=== PATIENT | female | born 1970 | race African-American/Black ===

== ENCOUNTER 2022-07-27 13:18 | Observation (INO) | payer MEDICAID, SELFPAY ==
[2022-07-27] VITALS (37 sets, daily range): BP systolic 96–139; BP diastolic 68–90; PULSE 79–131; RESP 13–43; TEMP 36.5–36.7; O2SAT 73–100; BMI 39.5; BMI 35.6
--- NOTE | 2022-07-27 13:42 | ED_ITS ---
HPI - SOB/Dyspnea General Chief Complaint: Shortness of Breath/Dyspnea Stated Complaint: SHOTRNESS OF BREATH Time Seen by Provider: 07/27/22 13:42 Source: patient Mode of arrival: ambulance Limitations comment: Patient is a poor historian History of Present Illness HPI Narrative: Patient presents to emergency department complaining of dyspnea. Patient states she has a history of lung disease, She just moved here from [place] 9 days ago. She was hospitalized [place] about one month ago after she had cardiac arrest was intubated states she had a heart catheterization and she was shocked. She states during the catheterization they did not put any stents. The patient recovered and moved to [place]. She states when she flew into [place] she was supposed to be wearing 6 L of oxygen but they did not allow her to bring the oxygen with her on the airplane so she has been without her oxygen for 9 days. She has inhalers that she has been using them a lot and she states that they're no longer helping. Has a cough which is productive of white sputum. She denies any chest pain. She does not know what medication she takes. She was supposed to follow-up with a heart doctor and family doctor and [place] but she came here because her is ill. She states she has been unable to obtain any oxygen to wear at home. She denies any fever, or chills. She denies any nausea, vomiting, diarrhea, constipation, or abdominal pain. She denies any trauma. She denies any flank pain, hematuria, dysuria. Medication list was obtained from a discharge paperwork that the patient had with her. Related Data Home Medications Medication Instructions Recorded Confirmed albuterol sulfate 1.25 mg/3 mL 1.25 mg inhalation Q8H PRN 07/27/22 07/27/22 solution for nebulization shortness of breath or wheezing amiodarone 200 mg tablet 200 mg PO Q12H 07/27/22 07/27/22 budesonide-formoterol HFA 160 2 inh inhalation Q12H PRN 07/27/22 07/27/22 mcg-4.5 mcg/actuation aerosol shortness of breath inhaler (Symbicort) furosemide 20 mg tablet 20 mg PO QDAY 07/27/22 07/27/22 gabapentin 600 mg tablet 600 mg PO Q12H 07/27/22 07/27/22 levalbuterol HCl 1.25 mg/3 mL 1.25 mg inhalation Q6H PRN 07/27/22 07/27/22 solution for nebulization shortness of breath or wheezing oxycodone-acetaminophen 10 mg-325 1 tab PO Q8H 07/27/22 07/27/22 mg tablet pantoprazole 40 mg tablet,delayed 40 mg PO QDAY 07/27/22 07/27/22 release potassium chloride 10 mEq 10 meq PO QDAY 07/27/22 07/27/22 tablet,extended release sennosides 8.6 mg tablet (senna) 8.6 mg PO BID 07/27/22 07/27/22 Allergies Allergy/AdvReac Type Severity Reaction Status Date / Time Penicillins Allergy Intermediate Verified 07/27/22 13:24 Review of Systems ROS Status of ROS 10 or more systems reviewed and unremarkable except as noted in history and below Exam Narrative Exam Narrative: Nurses notes and vital signs reviewed and patient is not hypoxic. General: Nontoxic, Well-appearing and in no apparent distress. Skin: Warm, dry, no pallor noted. No Rash Head: Normocephalic, atraumatic. Neck: Supple, non-tender. Eye: Pupils are equal, round and EOMI. No scleral icterus. Ears, Nose, Mouth, and Throat: TM clear, no posterior oropharynx erythema or nasal mucosal hypertrophy, uvula is mid-line Oral mucosa is moist, edentous Cardiovascular: Regular tachycardia without murmur, gallop or rub. Respiratory: No accessory muscle use or respiratory distress. Lungs diminished breath sounds bilaterally Chest Wall: no tenderness Back: No midline thoracic or lumbar vertebral tenderness. No CVA tenderness Musculoskeletal: normal ROM, no calf or popliteal tenderness, no lower extremity edema/swelling GI: Abdomen is soft, non-distended. Normal bowel sounds. No masses appreciated. No tenderness to palpation. No rebound, guarding, or rigidity noted. Neurological: A&O x4. No cranial nerve dysfunction observed. No truncal a taxia. Moves all extremities. Sensation intact. Psychiatric: Cooperative and interactive. Normal mood and affect. Constitutional Vital Signs - 24 hr 07/27/22 13:24 07/27/22 13:42 07/27/22 13:47 Temperature 97.7 F Pulse Rate Respiratory Rate 22 Blood Pressure Blood Pressure [Left Arm] 117/90 H Pulse Oximetry 85 L 94 L 99 Oxygen Delivery Method Room Air Nasal Cannula Room Air Oxygen Delivery Flow Rate 1 07/27/22 13:30 07/27/22 13:31 07/27/22 13:32 Temperature Pulse Rate 125 H 127 H 94 H Respiratory Rate 21 34 H 27 H Blood Pressure 130/83 H Blood Pressure [Left Arm] Pulse Oximetry 95 94 L Oxygen Delivery Method Oxygen Delivery Flow Rate 07/27/22 13:47 07/27/22 14:01 07/27/22 14:10 Temperature Pulse Rate 127 H 131 H 90 Respiratory Rate 26 H 23 43 H Blood Pressure 103/79 Blood Pressure [Left Arm] Pulse Oximetry Oxygen Delivery Method Oxygen Delivery Flow Rate 07/27/22 14:20 07/27/22 14:30 07/27/22 14:40 Temperature Pulse Rate 90 88 84 Respiratory Rate 28 H 21 18 Blood Pressure Blood Pressure [Left Arm] Pulse Oximetry 100 Oxygen Delivery Method Oxygen Delivery Flow Rate 07/27/22 14:50 07/27/22 15:00 07/27/22 15:10 Temperature Pulse Rate 87 93 H 87 Respiratory Rate 14 17 33 H Blood Pressure Blood Pressure [Left Arm] Pulse Oximetry 100 98 Oxygen Delivery Method Oxygen Delivery Flow Rate 07/27/22 15:28 07/27/22 15:30 07/27/22 15:32 Temperature Pulse Rate 92 H 88 88 Respiratory Rate 27 H 26 H 21 Blood Pressure Blood Pressure [Left Arm] Pulse Oximetry 73 L Oxygen Delivery Method Oxygen Delivery Flow Rate 07/27/22 15:33 07/27/22 16:32 07/27/22 17:21 Temperature Pulse Rate 85 Respiratory Rate 22 Blood Pressure 117/88 H Blood Pressure [Left Arm] Pulse Oximetry 100 96 Oxygen Delivery Method Nasal Cannula Nasal Cannula Oxygen Delivery Flow Rate 3 3 07/27/22 15:33 07/27/22 15:46 07/27/22 16:17 Temperature Pulse Rate 84 90 89 Respiratory Rate 26 H 43 H 13 Blood Pressure 117/88 H 129/71 H 101/80 H Blood Pressure [Left Arm] Pulse Oximetry 81 L Oxygen Delivery Method Oxygen Delivery Flow Rate 07/27/22 16:32 07/27/22 16:42 07/27/22 16:50 Temperature Pulse Rate 87 102 H Respiratory Rate 22 16 Blood Pressure Blood Pressure [Left Arm] Pulse Oximetry 100 95 99 Oxygen Delivery Method Oxygen Delivery Flow Rate 07/27/22 17:00 07/27/22 17:10 07/27/22 17:16 Temperature Pulse Rate 86 87 Respiratory Rate Blood Pressure Blood Pressure [Left Arm] Pulse Oximetry 97 96 Oxygen Delivery Method Oxygen Delivery Flow Rate 07/27/22 17:17 07/27/22 17:17 Temperature Pulse Rate 90 Respiratory Rate Blood Pressure 96/68 96/68 Blood Pressure [Left Arm] Pulse Oximetry 96 Oxygen Delivery Method Oxygen Delivery Flow Rate Course Course Hospital Course: Records from previous admission where ordered. She was given Solu-Medrol 125 mg IV. EKG was done which showed a left bundle branch block with left ventricular hypertrophy and ST elevation in lead 3 and aVF. I discussed his EKG and it was reviewed by Dr. HOWARD who advised this is not a STEMI and to continue with the patient's workup here at [place]. ABG was ordered. The patient's oxygen saturation has been 99-100 percent on 1 L nasal cannula. Patient was given albuterol and DuoNeb treatments which helped her. Oxygen saturation is 100 percent on 1 L nasal cannula. The patient ABG is showed that the patient is hypoxic. She was placed on 3 L nasal cannula. The patient has been noncompliant with her medications. The patient troponin remained stable on repeat. The patient was discussed with Dr. Palma for admission. This note was created with the assistance of a speech recognition program. Although the intention is to generate documents that actually reflects the content of the visit, no guarantees can be provided that every mistake has been identified and corrected by editing. Vital Signs Vital signs: Vital Signs Temperature 97.7 F 07/27/22 13:24 Respiratory Rate 22 07/27/22 13:24 Blood Pressure 117/90 H 07/27/22 13:24 Pulse Oximetry 85 L 07/27/22 13:24 Oxygen Delivery Method Room Air 07/27/22 13:24 Temperature 97.7 F 07/27/22 13:24 Pulse Rate 90 07/27/22 17:17 Respiratory Rate 16 07/27/22 16:50 Blood Pressure 96/68 07/27/22 17:17 Pulse Oximetry 96 07/27/22 17:21 Oxygen Delivery Method Nasal Cannula 07/27/22 17:21 Oxygen Delivery Flow Rate 3 07/27/22 17:21 MDM - SOB/Dyspnea Differential Diagnosis Differential diagnosis: Likely acute exacerbation of chronic obstructive airways disease, congestive heart failure, community acquired pneumonia, asthma with exacerbation and pulmonary embolism Medical Records Attestation: I reviewed the patient's medical records. Lab Data Attestation: I reviewed the patient's lab results. Labs: Lab Results 07/27/22 07/27/22 07/27/22 Range/Units 14:10 14:40 16:04 WBC 8.2 (4.0-11.0) 10^3/uL RBC 4.24 (4.20-5.40) 10^6/uL Hgb 9.9 L (12.0-16.0) g/dL Hct 33.3 L (36.0-48.0) % MCV 78.5 L (81.0-99.0) fL MCH 23.3 L (26.7-34.0) pg MCHC 29.7 L (29.9-35.2) g/dL RDW 17.9 H (11.0-15.0) % Plt Count 454 H (150-450) 10^3/uL MPV 9.6 (9.5-13.5) fL Neut % (Auto) 69.0 (43.0-75.0) % Lymph % (Auto) 24.2 (20.5-60.0) % Cassia % (Auto) 5.6 (1.7-12.0) % Eos % (Auto) 0.9 (0.9-7.0) % Baso % (Auto) 0.1 L (0.2-2.0) % Neut # (Auto) 5.6 (1.4-6.5) 10^3/uL Lymph # (Auto) 2.0 (1.2-3.8) 10^3/uL Cassia # (Auto) 0.5 (0.3-0.8) 10^3/uL Eos # (Auto) 0.1 (0.0-0.7) 10^3/uL Baso # (Auto) 0.0 (0.0-0.1) 10^3/uL Abs Immat Gran (auto) 0.02 (0.00-0.03) 10^3/uL Imm/Tot Granulo (auto) 0.2 (0.0-0.5) % PT 11.5 (9.0-11.6) sec INR 1.09 APTT 25.6 (22.3-36.2) sec D-Dimer 1.57 H* (<=0.59) mg/L FEU Puncture Site Rr ABG pH 7.516 H* (7.350-7.450) ABG pCO2 32.5 L (35.0-45.0) mmHg ABG pO2 48.2 L (80.0-100.0) mmHg ABG HCO3 26.3 H (22.0-26.0) mmol/L ABG O2 Saturation 85.3 % ABG Base Excess 3.3 H (-2.0-2.0) mmol/L Mickey Test Positive (POSITIVE) Sodium 141 (136-145) mmol/L Potassium 2.9 L* (3.5-5.1) mmol/L Chloride 102 (98-107) mmol/L Carbon Dioxide 29.9 (21.0-32.0) mmol/L Anion Gap 12.0 BUN 15.0 (7.0-18.0) mg/dL Creatinine 0.94 (0.55-1.02) mg/dL Est GFR ( Amer) >60 (>=60) Est GFR (Non-Af Amer) >60 (>=60) BUN/Creatinine Ratio 16.0 Glucose 90 (74-106) mg/dL Calcium 8.5 (8.5-10.1) mg/dL Total Bilirubin 0.5 (0.2-1.0) mg/dL AST 25 (15-37) U/L ALT 29 (14-59) U/L Alkaline Phosphatase 85 (46-116) U/L Troponin I High Sens 83.5 H* 82.8 H* (4.0-51.3) pg/mL NT-Pro-B Natriuret Pep 693.0 (<=900.0) pg/mL Total Protein 7.1 (6.4-8.2) g/dL Albumin 2.6 L (3.4-5.0) g/dL Globulin 4.5 g/dL Albumin/Globulin Ratio 0.6 Adenovirus (PCR) (NOT DETECTE) C. pneumoniae DNA (PCR) (NOT DETECTE) Coronavirus Type OC43 (NOT DETECTE) Coronavirus Type HKU1 (NOT DETECTE) Coronavirus Type 229E (NOT DETECTE) Coronavirus Type NL63 (NOT DETECTE) Human Metapneumovir PCR (NOT DETECTE) M. pneumoniae (PCR) (NOT DETECTE) Parainfluenza PCR (NOT DETECTE) Parainfluenza 2 (PCR) (NOT DETECTE) Parainfluenza 3 (PCR) (NOT DETECTE) Parainfluenza 4 (PCR) (NOT DETECTE) RSV (RT-PCR) (NOT DETECTE) Entero/Rhino (PCR) (NOT DETECTE) SARS-CoV-2 (PCR) (NOT DETECTE) Bordetella pertussis (PCR) (NOT DETECTE) B parapertussis DNA PCR (NOT DETECTE) Influenza Type A (PCR) Influenza Type B (PCR) (NOT DETECTE) 07/27/22 Range/Units 16:20 WBC (4.0-11.0) 10^3/uL RBC (4.20-5.40) 10^6/uL Hgb (12.0-16.0) g/dL Hct (36.0-48.0) % MCV (81.0-99.0) fL MCH (26.7-34.0) pg MCHC (29.9-35.2) g/dL RDW (11.0-15.0) % Plt Count (150-450) 10^3/uL MPV (9.5-13.5) fL Neut % (Auto) (43.0-75.0) % Lymph % (Auto) (20.5-60.0) % Cassia % (Auto) (1.7-12.0) % Eos % (Auto) (0.9-7.0) % Baso % (Auto) (0.2-2.0) % Neut # (Auto) (1.4-6.5) 10^3/uL Lymph # (Auto) (1.2-3.8) 10^3/uL Cassia # (Auto) (0.3-0.8) 10^3/uL Eos # (Auto) (0.0-0.7) 10^3/uL Baso # (Auto) (0.0-0.1) 10^3/uL Abs Immat Gran (auto) (0.00-0.03) 10^3/uL Imm/Tot Granulo (auto) (0.0-0.5) % PT (9.0-11.6) sec INR APTT (22.3-36.2) sec D-Dimer (<=0.59) mg/L FEU Puncture Site ABG pH (7.350-7.450) ABG pCO2 (35.0-45.0) mmHg ABG pO2 (80.0-100.0) mmHg ABG HCO3 (22.0-26.0) mmol/L ABG O2 Saturation % ABG Base Excess (-2.0-2.0) mmol/L Mickey Test (POSITIVE) Sodium (136-145) mmol/L Potassium (3.5-5.1) mmol/L Chloride (98-107) mmol/L Carbon Dioxide (21.0-32.0) mmol/L Anion Gap BUN (7.0-18.0) mg/dL Creatinine (0.55-1.02) mg/dL Est GFR ( Amer) (>=60) Est GFR (Non-Af Amer) (>=60) BUN/Creatinine Ratio Glucose (74-106) mg/dL Calcium (8.5-10.1) mg/dL Total Bilirubin (0.2-1.0) mg/dL AST (15-37) U/L ALT (14-59) U/L Alkaline Phosphatase (46-116) U/L Troponin I High Sens (4.0-51.3) pg/mL NT-Pro-B Natriuret Pep (<=900.0) pg/mL Total Protein (6.4-8.2) g/dL Albumin (3.4-5.0) g/dL Globulin g/dL Albumin/Globulin Ratio Adenovirus (PCR) Not detected (NOT DETECTE) C. pneumoniae DNA (PCR) Not detected (NOT DETECTE) Coronavirus Type OC43 Not detected (NOT DETECTE) Coronavirus Type HKU1 Not detected (NOT DETECTE) Coronavirus Type 229E Not detected (NOT DETECTE) Coronavirus Type NL63 Not detected (NOT DETECTE) Human Metapneumovir PCR Not detected (NOT DETECTE) M. pneumoniae (PCR) Not detected (NOT DETECTE) Parainfluenza PCR Not detected (NOT DETECTE) Parainfluenza 2 (PCR) Not detected (NOT DETECTE) Parainfluenza 3 (PCR) Not detected (NOT DETECTE) Parainfluenza 4 (PCR) Not detected (NOT DETECTE) RSV (RT-PCR) Not detected (NOT DETECTE) Entero/Rhino (PCR) Not detected (NOT DETECTE) SARS-CoV-2 (PCR) Not detected (NOT DETECTE) Bordetella pertussis (PCR) Not detected (NOT DETECTE) B parapertussis DNA PCR Not detected (NOT DETECTE) Influenza Type A (PCR) Not detected Influenza Type B (PCR) Not detected (NOT DETECTE) Critical Care Time Critical Care Time Attestation: Critical Care Time: 35 minutes, critical care time is separate from any procedures that are performed. The following was considered in the determination of critical care but not limited to the level medical decision-making, intensive cardiac and/or respiratory monitor, frequent vital sign monitoring, evaluation of laboratory studies, evaluation of a radiographic studies, oxygen monitoring and constant monitoring. Discharge Plan Discharge Chief Complaint: Shortness of Breath/Dyspnea Clinical Impression: Interstitial emphysema of lung, Pulmonary fibrosis, Hypoxemia, Tachycardia, Noncompliance with medication regimen Patient Disposition: Admitted as Observation Time of Disposition Decision: 17:18 Condition: Good
--- NOTE | 2022-07-27 13:52 | ECG_ITS ---
The [facility] Test Date: 2022-07-27 Pat Name: AL NEWMAN Department: Room: - Gender: Female [employer]ist: : 1970 Requested By: Order Number: [id number] Reading MD: JUAN KENNEDY Measurements Intervals [place] Rate: 125 P: -[id number] ME: -[id number] QRS: -59 QRSD: 128 T: 122 QT: 388 QTc: 462 Interpretive Statements 1921 Undetermined regular rhythm (tachycardia) 3332 Anterolateral myocardial infarction, probably recent 61822 Inferior myocardial infarction with posterior extension, age undetermined 5234 Left ventricular hypertrophy with repolarization abnormality 9150 abnormal ECG No previous ECG available for comparison Electronically Signed On 07-28-2022 6:56:02 EDT by JUAN KENNEDY
--- NOTE | 2022-07-27 13:52 | XR_ITS ---
The [place] [id number] Patient Name: AL NEWMAN MRN: [id number] date: 1970 Sex: F Assigned Patient Location: ER Current Patient Location: ER Accession/Order Number: [id number] Exam Date: 07/27/2022 03:00 Report Date: 07/27/2022 15:24 At the request of: SHAGUFTA MCGEE Procedure: XR chest 1V EXAMINATION: XR chest 1V HISTORY: dyspnea COMPARISON: No relevant comparison available. FINDINGS: LUNGS: Underexpanded lungs with mild haziness and stranding within lung bases partially obscuring the heart and diaphragm margins. VASCULATURE: No increased pulmonary vasculature. PLEURA: No pneumothorax, effusion, or pleural thickening. CARDIAC: No cardiomegaly or cardiac silhouette abnormality. MEDIASTINUM: No visible mass or adenopathy. BONES: No fracture or visible bone lesion. OTHER: Negative. IMPRESSION: 1. Low lung volume examination with mild-moderate bibasilar infiltrates versus atelectasis. Electronically authenticated by: ARJUN SWEENEY Date: 07/27/2022 15:24
[2022-07-27] MEDS: METHYLPREDNISOLONE SOD SUCC PF 125 MG/2 ML VIAL IVP ×2 (14:13→22:11)
[2022-07-27 14:27] LABS: Basophils Percent Auto 0.1 % (0.2-2.0); Eosinophils Absolute Auto 0.1 10^3/uL (0.0-0.7); Eosinophils Percent Auto 0.9 % (0.9-7.0); Hematocrit 33.3 % (36.0-48.0); Hemoglobin 9.9 g/dL (12.0-16.0); Immature Granulocytes Abs Auto 0.02 10^3/uL (0.00-0.03); Immature Granulocytes Pct Auto 0.2 % (0.0-0.5); Lymphocytes Percent Auto 24.2 % (20.5-60.0); Mean Corpuscular HGB Conc 29.7 g/dL (29.9-35.2); Mean Corpuscular Hemoglobin 23.3 pg (26.7-34.0); Mean Corpuscular Volume 78.5 fL (81.0-99.0); Mean Platelet Volume 9.6 fL (9.5-13.5); Monocytes Absolute Auto 0.5 10^3/uL (0.3-0.8); Monocytes Percent Auto 5.6 % (1.7-12.0); Neutrophils Absolute Auto 5.6 10^3/uL (1.4-6.5); Platelet Count 454 10^3/uL (150-450); Red Blood Count 4.24 10^6/uL (4.20-5.40); Red Cell Distribution Width 17.9 % (11.0-15.0); White Blood Count 8.2 10^3/uL (4.0-11.0)
[2022-07-27] MEDS: IPRATROPIUM/ALBUTEROL SULFATE 3 ML AMPUL.NEB IH (14:34)
--- NOTE | 2022-07-27 14:38 | PC.NURSE ---
PT ARRIVE TO ER RM 4 FOR PSYCHIATRIC EVALUATION AND DRUG USE. PT WAS FOUND BY [facility] DISPLAYING BIZARRE BEHAVIOR AND TALKING TO PEOPLE WHO ARE NOT THERE. PT WAS SEEN BY THIS FACILITY 2 DAYS AGO WITH SIMILAR BEHAVIOR. DURING THAT ER VISIT PT WAS POSITIVE FOR METHAMPHETAMINE AND WAS POSITIVE FOR . DUE TO POSITIVE THIS FACILITY ALONG WITH CRISIS HOTLINE AT [facility] WAS UNABLE TO FIND PLACEMENT INPATIENT AND WAS DISCHARGED HOME. DURING THIS CURRENT VISIT PT IS UNCOOPERATIVE WITH STAFF AND LAW ENFORCEMENT. THIS WAS EXPLAINED TO ER PHYSICIAN AND AGREES THAT PT IS MEDICALLY CLEAR TO BE PLACE IN CUSTODY OF [facility]
[2022-07-27 14:52] LABS: INR 1.09; Partial Thromboplastin Time 25.6 sec (22.3-36.2); Prothrombin Time 11.5 sec (9.0-11.6)
[2022-07-27 14:55] LABS: D Dimer 1.57 mg/L FEU (<=0.59)
[2022-07-27 15:01] LABS: Alanine Aminotransferase 29 U/L (14-59); Albumin Globulin Ratio 0.6; Albumin Level 2.6 g/dL (3.4-5.0); Alkaline Phosphatase 85 U/L (46-116); Aspartate Amino Transferase 25 U/L (15-37); Bilirubin Total 0.5 mg/dL (0.2-1.0); Calcium 8.5 mg/dL (8.5-10.1); Carbon Dioxide 29.9 mmol/L (21.0-32.0); Chloride 102 mmol/L (98-107); Estimated GFR (African America >60 (>=60); Estimated GFR (Non-African Ame >60 (>=60); Globulin 4.5 g/dL; Glucose 90 mg/dL (74-106); Sodium 141 mmol/L (136-145); Total Protein 7.1 g/dL (6.4-8.2)
[2022-07-27 15:05] LABS: Potassium 2.9 mmol/L (3.5-5.1)
[2022-07-27 15:06] LABS: Troponin I High Sensitivity 83.5 pg/mL (4.0-51.3)
--- NOTE | 2022-07-27 15:06 | CT_ITS ---
The [address] [address] Patient Name: AL NEWMAN MRN: [id number] date: 1970 Sex: F Assigned Patient Location: ER Current Patient Location: ER Accession/Order Number: [id number] Exam Date: 07/27/2022 15:15 Report Date: 07/27/2022 16:18 At the request of: SHAGUFTA MCGEE Procedure: CT angio chest CT angio chest, 07/27/2022 3:15 PM EDT INDICATION: dyspnea COMPARISON: Chest x-ray, this same date. Chest CT 12/10/2010 TECHNIQUE: Iodinated contrast was administered intravenously by rapid injection, with further multislice axial sections acquired in the pulmonary arterial phase from the thoracic inlet to the upper abdomen. Coronal maximal intensity projection images were created for comprehensive analysis and diagnosis of the regional circulation. Dose reduction techniques were achieved by using automated exposure control and/or adjustment of mA and/or kV according to patient size and/or use of iterative reconstruction technique. FINDINGS: LUNGS/PLEURA: There are peripherally distributed groundglass densities with interstitial septal thickening with a basilar predominance. VASCULATURE: No visible pulmonary arterial thrombus or attenuation. The main pulmonary artery measures 3.2 cm in diameter. MELECIO: No mass or adenopathy. MEDIASTINUM: No mass or adenopathy. CARDIAC: Cardiomegaly AORTA: Normal. No aneurysm or dissection. CHEST WALL: No mass or axillary adenopathy LIMITED ABD: There is a small hiatal hernia. BONES: Normal. No bony lesion or fracture. OTHER: Negative. IMPRESSION: Peripherally distributed groundglass densities with interstitial septal thickening, appearing chronic. Clinical history given for the chest CT of 12 years ago alluded to the possibility of interstitial lung disease. Query whether such a diagnosis has been established? If not, consider further evaluation with nonemergent high-resolution lung CT. Borderline prominent main pulmonary artery suggesting the possibility of pulmonary arterial hypertension. No evidence for pulmonary embolism. Electronically authenticated by: Oseas MOTA Date: 07/27/2022 16:18
[2022-07-27 15:09] LABS: ABG PCO2 32.5 mmHg (35.0-45.0)
[2022-07-27 15:10] LABS: Allen Test POSITIVE (POSITIVE); Base Excess ABG 3.3 mmol/L (-2.0-2.0); HCO3 ABG 26.3 mmol/L (22.0-26.0); O2 Mode ROOM AIR; Oxygen Saturation ABG 85.3 %; PO2 ABG 48.2 mmHg (80.0-100.0); Puncture Site RR
[2022-07-27 15:12] LABS: pH ABG 7.516 (7.350-7.450)
[2022-07-27 16:30] LABS: Adenovirus NOT DETECTED (NOT DETECTE); Bordetella parapertussis NOT DETECTED (NOT DETECTE); Coronavirus 229E NOT DETECTED (NOT DETECTE); Coronavirus HKU1 NOT DETECTED (NOT DETECTE); Coronavirus NL63 NOT DETECTED (NOT DETECTE); Coronavirus OC43 NOT DETECTED (NOT DETECTE); Human Metapneumovirus NOT DETECTED (NOT DETECTE); Human Rhinovirus/Enterovirus NOT DETECTED (NOT DETECTE); Influenza A NOT DETECTED; Influenza B NOT DETECTED (NOT DETECTE); Mycoplasma pneumoniae NOT DETECTED (NOT DETECTE); Parainfluenza Virus 1 NOT DETECTED (NOT DETECTE); Parainfluenza Virus 2 NOT DETECTED (NOT DETECTE); Parainfluenza Virus 3 NOT DETECTED (NOT DETECTE); Parainfluenza Virus 4 NOT DETECTED (NOT DETECTE); Respiratory Syncytial Virus NOT DETECTED (NOT DETECTE); SARS-CoV-2 NOT DETECTED (NOT DETECTE)
[2022-07-27 16:34] LABS: Troponin I High Sensitivity 82.8 pg/mL (4.0-51.3)
[2022-07-27 19:09] LABS: Lactate/Lactic Acid 2.7 mmol/L (0.4-2.0)
[2022-07-27 19:24] LABS: Cannabinoid Screen Urine POSITIVE (NEGATIVE); Cocaine Screen Urine POSITIVE (NEGATIVE); Phencyclidine Screen Urine NEGATIVE (NEGATIVE)
[2022-07-27 19:25] LABS: Amphetamine Screen Urine NEGATIVE (NEGATIVE); Barbiturates Screen Urine NEGATIVE (NEGATIVE); Benzodiazepines Screen Urine NEGATIVE (NEGATIVE); Buprenorphine Screen Urine NEGATIVE (NEGATIVE); Methadone Screen Urine NEGATIVE (NEGATIVE); Methamphetamines Screen Urine NEGATIVE (NEGATIVE); Opiate Screen Urine NEGATIVE (NEGATIVE); Oxycodone Screen Urine NEGATIVE (NEGATIVE); Tricyclic Antidepressant Urine POSITIVE (NEGATIVE)
[2022-07-27] MEDS: AMIODARONE HCL 200 MG TABLET PO (22:04)
[2022-07-27] MEDS: GABAPENTIN 300 MG CAPSULE 600 MG PO (22:07)
[2022-07-27] MEDS: OXYCODONE HCL 5 MG TABLET PO (22:07)
[2022-07-27] MEDS: SENNOSIDES 8.6 MG TABLET PO (22:12)
[2022-07-27] MEDS: CEFTRIAXONE 1,000 MG in 0.9 % SODIUM CHLORIDE 50 ML 100 MG IV (22:39)
[2022-07-27] MEDS: BUDESONIDE 0.5 MG/2 ML AMPULE NEB IH (22:49)
[2022-07-27] MEDS: ALBUTEROL SULFATE 2.5 MG/3 ML VIAL NEB IH (22:52)
[2022-07-28] VITALS (19 sets, daily range): BP systolic 109–136; BP diastolic 62–84; PULSE 72–107; RESP 18–123; TEMP 36.2–36.6; O2SAT 93–100; BMI 35.5
[2022-07-28] MEDS: METHYLPREDNISOLONE SOD SUCC PF 125 MG/2 ML VIAL IVP ×2 (03:56→08:14)
[2022-07-28] MEDS: ALBUTEROL SULFATE 2.5 MG/3 ML VIAL NEB IH ×2 (04:12→16:31)
--- NOTE | 2022-07-28 04:21 | RESP.RT ---
decreased to 4L
[2022-07-28 04:45] LABS: Basophils Percent Auto 0.2 % (0.2-2.0); Hematocrit 34.6 % (36.0-48.0); Hemoglobin 10.1 g/dL (12.0-16.0); Immature Granulocytes Abs Auto 0.04 10^3/uL (0.00-0.03); Immature Granulocytes Pct Auto 0.7 % (0.0-0.5); Lymphocytes Percent Auto 16.6 % (20.5-60.0); Mean Corpuscular HGB Conc 29.2 g/dL (29.9-35.2); Mean Corpuscular Hemoglobin 23.1 pg (26.7-34.0); Mean Platelet Volume 9.7 fL (9.5-13.5); Monocytes Percent Auto 0.7 % (1.7-12.0); Neutrophils Absolute Auto 4.8 10^3/uL (1.4-6.5); Neutrophils Percent Auto 81.8 % (43.0-75.0); Platelet Count 467 10^3/uL (150-450); Red Blood Count 4.38 10^6/uL (4.20-5.40); Red Cell Distribution Width 17.7 % (11.0-15.0); White Blood Count 5.9 10^3/uL (4.0-11.0)
[2022-07-28 05:02] LABS: Alanine Aminotransferase 51 U/L (14-59); Albumin Globulin Ratio 0.6; Albumin Level 2.8 g/dL (3.4-5.0); Alkaline Phosphatase 99 U/L (46-116); Anion Gap 16.3; Aspartate Amino Transferase 60 U/L (15-37); BUN Creatinine Ratio 20.9; Bilirubin Total 0.3 mg/dL (0.2-1.0); Carbon Dioxide 26.1 mmol/L (21.0-32.0); Chloride 102 mmol/L (98-107); Estimated GFR (African America >60 (>=60); Estimated GFR (Non-African Ame >60 (>=60); Globulin 4.9 g/dL; Glucose 174 mg/dL (74-106); Potassium 3.4 mmol/L (3.5-5.1); Sodium 141 mmol/L (136-145); Total Protein 7.7 g/dL (6.4-8.2)
[2022-07-28] MEDS: OXYCODONE HCL 5 MG TABLET PO ×2 (05:45→19:20)
[2022-07-28 05:51] LABS: Troponin I High Sensitivity 60.8 pg/mL (4.0-51.3)
[2022-07-28] MEDS: GABAPENTIN 300 MG CAPSULE 600 MG PO ×2 (06:02→19:22)
--- NOTE | 2022-07-28 06:02 | PC.NURSE ---
crirtical lab value troponin of 60.8, trending down from yesterdays level of 82.8
[2022-07-28] MEDS: AMIODARONE HCL 200 MG TABLET PO ×2 (06:03→19:22)
[2022-07-28 07:49] LABS: Glucometer 213 mg/dL (74-106)
[2022-07-28] MEDS: L. ACIDOPHILUS/L.BULGARICUS 1 PACKET GRAN.PACK PO ×3 (08:14→16:35)
[2022-07-28] MEDS: OMEPRAZOLE 40 MG CAPSULE.DR PO (08:14)
[2022-07-28] MEDS: SENNOSIDES 8.6 MG TABLET PO ×2 (08:14→21:36)
[2022-07-28] MEDS: FUROSEMIDE 40 MG TABLET PO (08:14)
[2022-07-28] MEDS: POTASSIUM CHLORIDE 10 MEQ ER TABLET PO (08:17)
[2022-07-28] MEDS: INSULIN ASPART 300 UNIT/3 ML PEN SUBQ ×4 (08:31→21:37)
--- NOTE | 2022-07-28 09:53 | P.HP_ITS ---
H&P: HPI History of Present Illness Chief complaint: SHOTRNESS OF BREATH Narrative: Patient with a known history of pulmonary fibrosis. She was on 4 to 5 L of oxygen at home in [place]. She moved up.. When she flew up she was unable to carry her oxygen with her. So she is been 8 or 9 days now without her sup plemental oxygen. Had some altered mental status and significant dyspnea presented to the emergency room with acute hypoxic respiratory failure. Placed on supplemental oxygen with improvement in her oxygen saturations. Patient also with cough with sputum production. Admitted for work-up and treatment of same [facility] Medical History (Updated 07/27/22 @ 18:45 by Sandy Marsh) Meds Home Medications and Allergies Home Medications Medication Instructions Recorded Confirmed Type albuterol sulfate 1.25 mg/3 mL 1.25 mg inhalation Q8H PRN 07/27/22 07/27/22 History solution for nebulization shortness of breath or wheezing amiodarone 200 mg tablet 200 mg PO Q12H 07/27/22 07/27/22 History budesonide-formoterol HFA 160 2 inh inhalation Q12H PRN 07/27/22 07/27/22 History mcg-4.5 mcg/actuation aerosol shortness of breath inhaler (Symbicort) furosemide 20 mg tablet 20 mg PO QDAY 07/27/22 07/27/22 History gabapentin 600 mg tablet 600 mg PO Q12H 07/27/22 07/27/22 History levalbuterol HCl 1.25 mg/3 mL 1.25 mg inhalation Q6H PRN 07/27/22 07/27/22 History solution for nebulization shortness of breath or wheezing oxycodone-acetaminophen 10 mg-325 1 tab PO Q8H 07/27/22 07/27/22 History mg tablet pantoprazole 40 mg tablet,delayed 40 mg PO QDAY 07/27/22 07/27/22 History release potassium chloride 10 mEq 10 meq PO QDAY 07/27/22 07/27/22 History tablet,extended release sennosides 8.6 mg tablet (senna) 8.6 mg PO BID 07/27/22 07/27/22 History Allergies Allergy/AdvReac Type Severity Reaction Status Date / Time Penicillins Allergy Intermediate Verified 07/27/22 13:24 Exam Constitutional Vital Signs - 24 hr 07/27/22 13:24 07/27/22 13:42 07/27/22 13:47 Temperature 97.7 F Pulse Rate Respiratory Rate 22 Blood Pressure Blood Pressure [Left Arm] 117/90 H Blood Pressure [Right Arm] Pulse Oximetry 85 L 94 L 99 Oxygen Delivery Method Room Air Nasal Cannula Room Air Oxygen Delivery Flow Rate 1 07/27/22 13:30 07/27/22 13:31 07/27/22 13:32 Temperature Pulse Rate 125 H 127 H 94 H Respiratory Rate 21 34 H 27 H Blood Pressure 130/83 H Blood Pressure [Left Arm] Blood Pressure [Right Arm] Pulse Oximetry 95 94 L Oxygen Delivery Method Oxygen Delivery Flow Rate 07/27/22 13:47 07/27/22 14:01 07/27/22 14:10 Temperature Pulse Rate 127 H 131 H 90 Respiratory Rate 26 H 23 43 H Blood Pressure 103/79 Blood Pressure [Left Arm] Blood Pressure [Right Arm] Pulse Oximetry Oxygen Delivery Method Oxygen Delivery Flow Rate 07/27/22 14:20 07/27/22 14:30 07/27/22 14:40 Temperature Pulse Rate 90 88 84 Respiratory Rate 28 H 21 18 Blood Pressure Blood Pressure [Left Arm] Blood Pressure [Right Arm] Pulse Oximetry 100 Oxygen Delivery Method Oxygen Delivery Flow Rate 07/27/22 14:50 07/27/22 15:00 07/27/22 15:10 Temperature Pulse Rate 87 93 H 87 Respiratory Rate 14 17 33 H Blood Pressure Blood Pressure [Left Arm] Blood Pressure [Right Arm] Pulse Oximetry 100 98 Oxygen Delivery Method Oxygen Delivery Flow Rate 07/27/22 15:28 07/27/22 15:30 07/27/22 15:32 Temperature Pulse Rate 92 H 88 88 Respiratory Rate 27 H 26 H 21 Blood Pressure Blood Pressure [Left Arm] Blood Pressure [Right Arm] Pulse Oximetry 73 L Oxygen Delivery Method Oxygen Delivery Flow Rate 07/27/22 15:33 07/27/22 16:32 07/27/22 17:21 Temperature Pulse Rate 85 Respiratory Rate 22 Blood Pressure 117/88 H Blood Pressure [Left Arm] Blood Pressure [Right Arm] Pulse Oximetry 100 96 Oxygen Delivery Method Nasal Cannula Nasal Cannula Oxygen Delivery Flow Rate 3 3 07/27/22 15:33 07/27/22 15:46 07/27/22 16:17 Temperature Pulse Rate 84 90 89 Respiratory Rate 26 H 43 H 13 Blood Pressure 117/88 H 129/71 H 101/80 H Blood Pressure [Left Arm] Blood Pressure [Right Arm] Pulse Oximetry 81 L Oxygen Delivery Method Oxygen Delivery Flow Rate 07/27/22 16:32 07/27/22 16:42 07/27/22 16:50 Temperature Pulse Rate 87 102 H Respiratory Rate 22 16 Blood Pressure Blood Pressure [Left Arm] Blood Pressure [Right Arm] Pulse Oximetry 100 95 99 Oxygen Delivery Method Oxygen Delivery Flow Rate 07/27/22 17:00 07/27/22 17:10 07/27/22 17:16 Temperature Pulse Rate 86 87 Respiratory Rate Blood Pressure Blood Pressure [Left Arm] Blood Pressure [Right Arm] Pulse Oximetry 97 96 Oxygen Delivery Method Oxygen Delivery Flow Rate 07/27/22 17:17 07/27/22 17:17 07/27/22 18:56 Temperature Pulse Rate 90 103 H Respiratory Rate Blood Pressure 96/68 96/68 Blood Pressure [Left Arm] Blood Pressure [Right Arm] Pulse Oximetry 96 Oxygen Delivery Method Oxygen Delivery Flow Rate 07/27/22 18:55 07/27/22 18:55 07/27/22 20:00 Temperature 98.0 F Pulse Rate 82 Respiratory Rate 20 20 Blood Pressure Blood Pressure [Left Arm] 131/84 H Blood Pressure [Right Arm] Pulse Oximetry 95 Oxygen Delivery Method Nasal Cannula Nasal Cannula Oxygen Delivery Flow Rate 3 3 07/27/22 20:22 07/27/22 21:24 07/27/22 22:04 Temperature 98 F Pulse Rate 81 80 80 Respiratory Rate 18 Blood Pressure 139/87 H Blood Pressure [Left Arm] Blood Pressure [Right Arm] 139/87 H Pulse Oximetry 100 Oxygen Delivery Method Nasal Cannula Oxygen Delivery Flow Rate 5 07/27/22 22:27 07/27/22 22:52 07/28/22 06:00 Temperature 97.8 F Pulse Rate 82 79 82 Respiratory Rate 18 18 Blood Pressure Blood Pressure [Left Arm] 131/84 H Blood Pressure [Right Arm] 121/78 H Pulse Oximetry 99 96 Oxygen Delivery Method Nasal Cannula Nasal Cannula Oxygen Delivery Flow Rate 3 4 07/28/22 00:00 07/28/22 02:04 07/27/22 23:10 Temperature Pulse Rate 84 76 80 Respiratory Rate 18 Blood Pressure Blood Pressure [Left Arm] Blood Pressure [Right Arm] Pulse Oximetry 99 Oxygen Delivery Method Oxygen Delivery Flow Rate 07/28/22 04:11 07/28/22 04:29 07/28/22 05:44 Temperature 97.8 F Pulse Rate 75 76 82 Respiratory Rate 18 18 18 Blood Pressure Blood Pressure [Left Arm] Blood Pressure [Right Arm] 121/78 H Pulse Oximetry 100 100 96 Oxygen Delivery Method Nasal Cannula Nasal Cannula Oxygen Delivery Flow Rate 5 4 07/28/22 07:55 07/28/22 09:49 Temperature Pulse Rate 96 H 78 Respiratory Rate Blood Pressure Blood Pressure [Left Arm] Blood Pressure [Right Arm] Pulse Oximetry Oxygen Delivery Method Oxygen Delivery Flow Rate HENMT Common normals: moist oral mucous membranes Neck & C-Spine Common normals: full ROM and no lymphadenopathy Chest Common normals: inspection of chest normal Respiratory Common normals: normal respiratory effort and no retractions Effort & inspection: not able to speak in complete sentences (Some dyspnea with conversation) Cardio Common normals: regular rate and regular rhythm GI Common normals: Normal to inspection, nondistended, normoactive bowel sounds present Results Labs Labs: Short CBC 07/27/22 07/28/22 Range/Units 14:10 04:11 WBC 8.2 5.9 (4.0-11.0) 10^3/uL Hgb 9.9 L 10.1 L (12.0-16.0) g/dL Hct 33.3 L 34.6 L (36.0-48.0) % Plt Count 454 H 467 H (150-450) 10^3/uL BMP 07/27/22 07/28/22 14:10 04:11 Sodium 141 141 Potassium 2.9 L* 3.4 L Chloride 102 102 Carbon Dioxide 29.9 26.1 BUN 15.0 18.0 Creatinine 0.94 0.86 Glucose 90 174 H Calcium 8.5 9.0 Liver Function 07/27/22 07/28/22 Range/Units 14:10 04:11 Total Bilirubin 0.5 0.3 (0.2-1.0) mg/dL AST 25 60 H (15-37) U/L ALT 29 51 (14-59) U/L Alkaline Phosphatase 85 99 (46-116) U/L Albumin 2.6 L 2.8 L (3.4-5.0) g/dL ABG ABG results: 07/27/22 14:40 ABG pH 7.516 H* ABG pCO2 32.5 L ABG pO2 48.2 L ABG HCO3 26.3 H ABG O2 Saturation 85.3 ABG Base Excess 3.3 H Assessment and Plan Assessment and Plan (1) Cocaine use: (2) Oxygen dependent: (3) Pulmonary disease: Plan Respiratory distress and acute hypoxia secondary to acute exacerbation of COPD secondary to acute bronchitis and lack of supplemental home oxygen. Also history of pulmonary fibrosis likely. Not certain the diagnosis but it has been finalized. Still gathering history. Continue with current treatment plan. Consult to pulmonology for acute care and long-term management Hypokalemia-supplement Iron deficiency anemia-monitor daily Hyperglycemia-Add insulin sliding scale Significant coronary artery disease status postcardiac arrest-elevated BNP,Hold off on further fluids, check echocardiogram GERD-continue with current medications Morbid obesity-diet management Patient will need to be in the hospital for more than 2 midnights. Continue with current treatment for acute exacerbation as above will last more tha2 daysn
--- NOTE | 2022-07-28 09:59 | SWNOTE1 ---
Pt is of Vito Garza who is admitted at hospital. SW spoke with her yesterday in 's room. She was sitting in chair, no shortness of breath, talking with WALLACE. Pt moved back to care for her . WALLACE spoke with nurse outreach case manager and pt had 5 liters of oxygen back in [place]. She has gone 9 days without her oxygen because she could not take it on plane. She has her inhalers she has been using. Pt also used to have walker, bedside commode, hospital bed, and caregivers at her home in [place]. She had told [employer] she had some medical condition that she needs caregivers for when she has a flare up. She would also like a medicaid application. WALLACE to take her one. She provided the oxygen company number, WALLACE to call.
[2022-07-28] MEDS: BUDESONIDE 0.5 MG/2 ML AMPULE NEB IH ×2 (10:23→23:02)
--- NOTE | 2022-07-28 10:26 | CA_ITS ---
Patient: AL NEWMAN Exam Date: 07/28/2022 : 1970 Gender:F Ordering : DR Sreekanth Palma . Admission #: [id number] Family : MAYNOR BACHRACH Order #: [id number] CLICK HERE TO VIEW EXAM ECHOCARDIOGRAM REPORT PROCEDURE: CA ECHO DOPPLER COMPLETE INDICATIONS: CHF COMPARISON: None. DESCRIPTION: COMPLETE ECHOCARDIOGRAM Real-time transthoracic echocardiography with 2D, M-mode, spectral and color flow Doppler performed. QUALITY: Technical quality was good. LEFT VENTRICLE: Normal chamber size. Mild concentric left ventricular hypertrophy. Global left ventricular systolic function is normal. LV EF: Estimated left ventricular ejection fraction is 60% DIASTOLIC: Grade II diastolic dysfunction. ATRIAL SEPTUM: LEFT ATRIUM: Mild dilatation. RIGHT ATRIUM: Moderate dilatation. RIGHT VENTRICLE: Mildly dilated. Normal right ventricular systolic function. TRICUSPID VALVE: Normal mobility and thickness. No stenosis with mild to moderate regurgitation. Moderate to severe pulmonary hypertension. RVSP 58 mmHg MITRAL VALVE: Mildly thickened with mild concentric left ventricular hypertrophy with normal systolic function. Normal mobility. No evidence of mitral valve stenosis. There is no mitral annular calcification. Trivial mitral regurgitation. AORTIC VALVE: Normal trileaflet appearance. Normal leaflet mobility. No evidence of aortic valve stenosis. No aortic regurgitation. AORTIC ROOT: Normal diameter and appearance. PULMONIC VALVE: Normal thickness and mobility. No stenosis. Mild regurgitation. PERICARDIUM: No evidence of pericardial effusion. IVC: Normal size with partial collapse. PLEURA: CONCLUSION: 1. Mild concentric left ventricular hypertrophy with normal systolic function. LVEF is estimated at 60%. 2. Mildly dilated right ventricle with normal systolic function. 3. Mild to moderate biatrial dilatation. 4. Grade 2 diastolic dysfunction. 5. Mild to moderate tricuspid regurgitation. 6. Moderately elevated right-sided pressures. RVSP is 58 mmHg. Adult Echocardiography Procedure Report Left Ventricle LVEDD (3.7 - 5.6 cm): 3.40 cm LVESD (2.2 - 4.0 cm): 2.46 cm LVIVS thickness (0.6 - 1.2 cm): 1.10 cm LVPW thickness (0.5 - 1.0 cm): 1.42 cm e': 0.09 m/s E - e': 11.53 LVOT Max Gradient: 3.23 mm[Hg], 3.67 mm[Hg] LVOT Area (cm2): 0.93 m/s Peak Velocity (LVOT): 0.90 m/s, 0.96 m/s Mean Velocity (LVOT): 0.57 m/s LVOT Diameter 1.77 cm Left Ventricular Ejection Fraction: 60% Left Atrium LA Volume Index (2D A2C): 40.20 ml/m2 Left Atrium Systolic Dimension: 4.54 cm Mitral Valve MV E to A Ratio: 1.83 Mitral Valve A-Wave Peak Velocity: 0.58 m/s Mitral Valve E-Wave Peak Velocity: 1.07 m/s Right Ventricle RV Internal Diastolic Dimension: 3.49 cm Aorta AO Root Diam: 2.83 cm Ascending Ao Diam: 2.93 cm Aortic Valve AoV Area (Peak Max): 1.78 cm2, 1.72 cm2 AoV Area (VTI): 1.72 cm2, 1.51 cm2 Peak Velocity(Antegrade Flow): 1.29 m/s Peak Gradient(Antegrade Flow): 6.65 mm[Hg] Mean Velocity(Antegrade Flow): 0.86 m/s Mean Gradient(Antegrade Flow): 3.42 mm[Hg] Velocity Time Integral: 21.27 cm Tricuspid Valve Peak Velocity (Regurgitant Flow): 2.76 m/s, 2.41 m/s, 3.53 m/s Pulmonic Valve Mean Gradient: 1.68 mm[Hg] Mean Velocity: 0.62 m/s Peak Velocity: 0.81 m/s, 0.86 m/s Peak Gradient: 2.94 mm[Hg], 2.62 mm[Hg] Right Atrium Right Atrium Systolic Pressure: 73.51 ml, 73.51 ml Dictated by: Nelson Hager M.D. on 07/29/2022 at 11:38 Approved by: Nelson Hager M.D. on 07/29/2022 at 11:43
[2022-07-28] MEDS: ALBUTEROL SULFATE 2.5 MG/0.5 ML VIAL NEB IH (10:33)
[2022-07-28 11:02] LABS: Glucometer 217 mg/dL (74-106)
--- NOTE | 2022-07-28 11:40 | CM.NOTE ---
Rounds made with Dr. Palma. No plan for discharge today. Gwen relays that prior to moving to [place] she had oxygen @ 5L/NC([employer] [phone]-DME provider in [place]) but was unable to bring on the airplane. She has been without oxygen for ~9 days. Gwen states that prior to moving to [place] she had walker, HHN, BSC, Hospital bed and cane. She states that when she has a flare of her myositis she requires constant care. Requested help completing the [place] Medicaid application.
--- NOTE | 2022-07-28 12:15 | SWNOTE1 ---
WALLACE spoke with pt. Pt is on oxygen currently and she stated she has not had her oxygen for 9 days. Pt is living at home with her right now and caring for him, she moved back from [place]. She stated it is just him and her in the home. She stated her 2 sons and her daughter in law live close, one of them right beside her. Her daughter in law is working on getting paid to be her 's caregiver. She stated her and her are on good terms, it is just his family. She stated once she is secured she plans on finding her own apartment. SW and pt talked about her oxygen and SW is going to call the [employer] in [place] to see what she had ordered. SW also asked if her had a walker at home and if they were alright with HH coming in. Pt's does have a walker and she thinks HH is a good idea. Pt did ask if HH did any house cleaning. SW let her know what HH does and that it would PT/OT and usp in the home a few times of the week until pt meets his goals. SW also took medicaid application to pt, she is filling it out. SW to take pt HH list for her .
--- NOTE | 2022-07-28 14:34 | PC.NURSE ---
titrated to 3 lpm at this time
--- NOTE | 2022-07-28 14:40 | SWNOTE1 ---
WALLACE spoke with pt's oxygen company in [place] Pt was prescribed home oxygen back in April 2022, oxygen conserving device and portability. She was prescribed 2 liters for COPD. WALLACE updated nursing. WALLACE also sent over medicaid application to [facility].
--- NOTE | 2022-07-28 15:39 | P.PLCN_ITS ---
History of Present Illness History of Present Illness Requesting physician: Sreekanth Palma Reason for consult: hypoxemia and abnormal CXR/CT Chief complaint: SHOTRNESS OF BREATH Narrative: 52yo female presents with hypoxemia. She is originally from [place], moved to [place] some years ago. 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 I said that myositis means muscle inflammation, did she mean something else like myeloma? She continued to call whatever it is myositis and was treated with prednisone... She moved back to [place] after that. She has a history of some sort of interstitial lung disease. She said that the computational sciences professor she saw there said it was due to her chronic prednisone therapy. No biopsies were ever taken of it. She was actually started on Ofev BID, but is complaining of the very common GI adverse effects. She was started on O2 several months ago at 2L/min O2. ~1 month ago she had a cardiac arrest and was apparently shocked. Report states that she had a cardiac catheterization, but I do not see a copy of it. She states she does not know why she had the ME. She returned to [place] last week to permanently relocate. As airplanes do not allow patients to bring their own O2 tanks with them, she continued with the entire trip without any supplemental O2. I did explain to her for future reference that the airlines will provide their own O2 (for a fee) but they need to be contacted in advance; additionally, the patient would also need to make arrangements for O2 at the destination. She was visiting her who was admitted to [facility]. Staff noted that she was not breathing well and she was brought to the ER. SpO2 was 85% on RA. ABG showed a respiratory alkalosis and hypoxemia: pH 7.516, pCO2 32.5, pO2 48.2, SaO2 85% on RA. CTA was done which showed no pulmonary emboli, but there were peripheral GGO with intraseptal thickening appeared similar to a prior CT 11.5 years ago done on 12/10/2010. I reviewed her chart. I noted that she tested positive for marijuana and cocaine. The patient admitted to me that she has a drug addiction. She uses marijuana for pain and mixes in cocaine and smokes it. I counseled her that she should never smoke anything around O2 - she states she takes it off. Review of Systems ROS Status of ROS 10 or more systems reviewed and unremarkable except as noted in history and below Respiratory Reports: shortness of breath Gastrointestinal Reports: diarrhea (associated with Ofev) Musculoskeletal Reports: joint pain Endocrine Reports: fatigue [facility] Medical History (Updated 07/28/22 @ 15:59 by Lopez Storey DO) Meds Home Medications and Allergies Home Medications Medication Instructions Recorded Confirmed Type albuterol sulfate 1.25 mg/3 mL 1.25 mg inhalation Q8H PRN 07/27/22 07/27/22 History solution for nebulization shortness of breath or wheezing amiodarone 200 mg tablet 200 mg PO Q12H 07/27/22 07/27/22 History budesonide-formoterol HFA 160 2 inh inhalation Q12H PRN 07/27/22 07/27/22 Histo ry mcg-4.5 mcg/actuation aerosol shortness of breath inhaler (Symbicort) furosemide 20 mg tablet 20 mg PO QDAY 07/27/22 07/27/22 History gabapentin 600 mg tablet 600 mg PO Q12H 07/27/22 07/27/22 History levalbuterol HCl 1.25 mg/3 mL 1.25 mg inhalation Q6H PRN 07/27/22 07/27/22 History solution for nebulization shortness of breath or wheezing oxycodone-acetaminophen 10 mg-325 1 tab PO Q8H 07/27/22 07/27/22 History mg tablet pantoprazole 40 mg tablet,delayed 40 mg PO QDAY 07/27/22 07/27/22 History release potassium chloride 10 mEq 10 meq PO QDAY 07/27/22 07/27/22 History tablet,extended release sennosides 8.6 mg tablet (senna) 8.6 mg PO BID 07/27/22 07/27/22 History Allergies Allergy/AdvReac Type Severity Reaction Status Date / Time Penicillins Allergy Intermediate Verified 07/27/22 13:24 Exam Constitutional Vital Signs - 24 hr 07/27/22 16:32 07/27/22 17:21 07/27/22 15:46 Temperature Pulse Rate 90 Respiratory Rate 43 H Blood Pressure 129/71 H Blood Pressure [Left Arm] Blood Pressure [Right Arm] Pulse Oximetry 96 81 L Oxygen Delivery Method Nasal Cannula Nasal Cannula Oxygen Delivery Flow Rate 3 3 07/27/22 16:17 07/27/22 16:32 07/27/22 16:42 Temperature Pulse Rate 89 87 Respiratory Rate 13 22 Blood Pressure 101/80 H Blood Pressure [Left Arm] Blood Pressure [Right Arm] Pulse Oximetry 100 95 Oxygen Delivery Method Oxygen Delivery Flow Rate 07/27/22 16:50 07/27/22 17:00 07/27/22 17:10 Temperature Pulse Rate 102 H 86 Respiratory Rate 16 Blood Pressure Blood Pressure [Left Arm] Blood Pressure [Right Arm] Pulse Oximetry 99 97 Oxygen Delivery Method Oxygen Delivery Flow Rate 07/27/22 17:16 07/27/22 17:17 07/27/22 17:17 Temperature Pulse Rate 87 90 Respiratory Rate Blood Pressure 96/68 96/68 Blood Pressure [Left Arm] Blood Pressure [Right Arm] Pulse Oximetry 96 96 Oxygen Delivery Method Oxygen Delivery Flow Rate 07/27/22 18:56 07/27/22 18:55 07/27/22 18:55 Temperature 98.0 F Pulse Rate 103 H 82 Respiratory Rate 20 Blood Pressure Blood Pressure [Left Arm] 131/84 H Blood Pressure [Right Arm] Pulse Oximetry 95 Oxygen Delivery Method Nasal Cannula Nasal Cannula Oxygen Delivery Flow Rate 3 3 07/27/22 20:00 07/27/22 20:22 07/27/22 21:24 Temperature 98 F Pulse Rate 81 80 Respiratory Rate 20 18 Blood Pressure Blood Pressure [Left Arm] Blood Pressure [Right Arm] 139/87 H Pulse Oximetry 100 Oxygen Delivery Method Nasal Cannula Oxygen Delivery Flow Rate 5 07/27/22 22:04 07/27/22 22:27 07/27/22 22:52 Temperature Pulse Rate 80 82 79 Respiratory Rate 18 Blood Pressure 139/87 H Blood Pressure [Left Arm] Blood Pressure [Right Arm] Pulse Oximetry 99 Oxygen Delivery Method Nasal Cannula Oxygen Delivery Flow Rate 3 07/28/22 06:00 07/28/22 00:00 07/28/22 02:04 Temperature 97.8 F Pulse Rate 82 84 76 Respiratory Rate 18 Blood Pressure Blood Pressure [Left Arm] 131/84 H Blood Pressure [Right Arm] 121/78 H Pulse Oximetry 96 Oxygen Delivery Method Nasal Cannula Oxygen Delivery Flow Rate 4 07/27/22 23:10 07/28/22 04:11 07/28/22 04:29 Temperature Pulse Rate 80 75 76 Respiratory Rate 18 18 18 Blood Pressure Blood Pressure [Left Arm] Blood Pressure [Right Arm] Pulse Oximetry 99 100 100 Oxygen Delivery Method Nasal Cannula Oxygen Delivery Flow Rate 5 07/28/22 05:44 07/28/22 07:55 07/28/22 09:49 Temperature 97.8 F Pulse Rate 82 96 H 78 Respiratory Rate 18 Blood Pressure Blood Pressure [Left Arm] Blood Pressure [Right Arm] 121/78 H Pulse Oximetry 96 Oxygen Delivery Method Nasal Cannula Oxygen Delivery Flow Rate 4 07/28/22 10:52 07/28/22 10:40 07/28/22 11:54 Temperature 97.2 F L Pulse Rate 107 H 87 Respiratory Rate 18 Blood Pressure Blood Pressure [Left Arm] Blood Pressure [Right Arm] 136/72 H Pulse Oximetry 93 L Oxygen Delivery Method Nasal Cannula Nasal Cannula Oxygen Delivery Flow Rate 4 4 07/28/22 12:07 07/28/22 13:57 07/28/22 14:00 Temperature 97.7 F Pulse Rate 74 72 Respiratory Rate 18 Blood Pressure Blood Pressure [Left Arm] Blood Pressure [Right Arm] 114/62 Pulse Oximetry 93 L 97 Oxygen Delivery Method Nasal Cannula Oxygen Delivery Flow Rate 5 Documenting provider has reviewed patient's vital signs: yes Common normals: no apparent distress HENMT Other: Wearing nasal cannula. Edentulous. Mallampati III Eye Common normals: PERRL Neck & C-Spine General: trachea midline Chest Common normals: inspection of chest normal and palpation of chest normal (posteriorly) Respiratory Common normals: normal respiratory effort Effort & inspection: able to speak in complete sentences Other: Coarse breath sounds at end of inhalation. No wheezes or rhonchi. Cardio Common normals: regular rate and regular rhythm GI Common normals: soft to palpation and non-tender Extremity Common normals: no clubbing, cyanosis or edema Neuro Common normals: no focal motor deficits Psych Speech: normal speech Results Laboratory Findings ABG, PT/INR, D-dimer: ABG ABG pH 7.516 (7.350-7.450) H* 07/27/22 14:40 ABG pCO2 32.5 mmHg (35.0-45.0) L 07/27/22 14:40 ABG pO2 48.2 mmHg (80.0-100.0) L 07/27/22 14:40 ABG O2 Saturation 85.3 % 07/27/22 14:40 PT/INR, D-dimer PT 11.5 sec (9.0-11.6) 07/27/22 14:10 INR 1.09 07/27/22 14:10 D-Dimer 1.57 mg/L FEU (<=0.59) H* 07/27/22 14:10 Abnormal lab findings: Abnormal Labs 07/27/22 07/27/22 07/27/22 14:10 14:40 16:04 Hgb 9.9 L Hct 33.3 L MCV 78.5 L MCH 23.3 L MCHC 29.7 L RDW 17.9 H Plt Count 454 H Neut % (Auto) Lymph % (Auto) Garrett % (Auto) Eos % (Auto) Baso % (Auto) 0.1 L Lymph # (Auto) Garrett # (Auto) Abs Immat Gran (auto) Imm/Tot Granulo (auto) D-Dimer 1.57 H* ABG pH 7.516 H* ABG pCO2 32.5 L ABG pO2 48.2 L ABG HCO3 26.3 H ABG Base Excess 3.3 H Potassium 2.9 L* Glucose Lactate 2.7 H* AST Troponin I High Sens 83.5 H* 82.8 H* NT-Pro-B Natriuret Pep Albumin 2.6 L U Tricyclic Antidepress Urine Cocaine Screen U Cannabinoids Screen POC Glucose 07/27/22 07/28/22 07/28/22 16:37 04:11 07:48 Hgb 10.1 L Hct 34.6 L MCV 79.0 L MCH 23.1 L MCHC 29.2 L RDW 17.7 H Plt Count 467 H Neut % (Auto) 81.8 H Lymph % (Auto) 16.6 L Garrett % (Auto) 0.7 L Eos % (Auto) 0.0 L Baso % (Auto) Lymph # (Auto) 1.0 L Garrett # (Auto) 0.0 L Abs Immat Gran (auto) 0.04 H Imm/Tot Granulo (auto) 0.7 H D-Dimer ABG pH ABG pCO2 ABG pO2 ABG HCO3 ABG Base Excess Potassium 3.4 L Glucose 174 H Lactate AST 60 H Troponin I High Sens 60.8 H* NT-Pro-B Natriuret Pep 945.0 H Albumin 2.8 L U Tricyclic Antidepress Positive A Urine Cocaine Screen Positive A U Cannabinoids Screen Positive A POC Glucose 213 H 07/28/22 11:01 Hgb Hct MCV MCH MCHC RDW Plt Count Neut % (Auto) Lymph % (Auto) Garrett % (Auto) Eos % (Auto) Baso % (Auto) Lymph # (Auto) Garrett # (Auto) Abs Immat Gran (auto) Imm/Tot Granulo (auto) D-Dimer ABG pH ABG pCO2 ABG pO2 ABG HCO3 ABG Base Excess Potassium Glucose Lactate AST Troponin I High Sens NT-Pro-B Natriuret Pep Albumin U Tricyclic Antidepress Urine Cocaine Screen U Cannabinoids Screen POC Glucose [address] scan - chest: report reviewed and image reviewed Assessment and Plan Assessment and Plan (1) Interstitial lung disease: Plan Respiratory distress and acute hypoxia secondary to acute exacerbation of COPD secondary to acute bronchitis and lack of supplemental home oxygen. Also history of pulmonary fibrosis likely. Not certain the diagnosis but it has been finalized. Still gathering history. Continue with current treatment plan. Consult to pulmonology for acute care and long-term management Hypokalemia-supplement Iron deficiency anemia-monitor daily Hyperglycemia-Add insulin sliding scale Significant coronary artery disease status postcardiac arrest-elevated BNP,Hold off on further fluids, check echocardiogram GERD-continue with current medications Morbid obesity-diet management Patient will need to be in the hospital for more than 2 midnights. Continue with current treatment for acute exacerbation as above will last more tha2 daysn 1. Interstitial lung disease. It has been present for at least 11.5 years, as the radiologist commented it appeared similar to prior imaging from 12/10/2010. Etiology unclear, patient claims it was from prednisone use for myositis; rather, I suspect it could be myositis or other connective tissue disease associated ILD. Ground glass nature of it argues against idiopathic pulmonary fibrosis, plus it is very rare to see it in a patient so young. No open lung biopsy or bronchoscopy was ever performed to obtain a definitive answer. She was started on Ofev for it, but is having common GI side effects with it. Records are vitally necessary to ascertain the prior computational sciences professor's thoughts on what this really is and the treatment plan. I discussed with the patient now that she is in [place] and she is applying for Medicaid, that simply obtaining Ofev without supporting data is almost impossible. Further plan of care dependant on prior pulmonary records. 2. Chronic hypoxic respiratory failure. Related to #1. Patient will need to have O2 arranged at discharge. She states she is applying for emergency Medicaid for some sort of coverage. Baseline is 2L/min O2. 3. Cocaine abuse. Patient admitted that she abuses cocaine, intermixing it with marijuana, and then smoking it. I discussed that chronic use of this can contribute to lung disease, and too much cocaine may have been the trigger for her ME. Explained to patient that if she continues this self-destructive behavior (drug abuse and smoking), then I would not be able to care for her pulmonary needs outpatient. She voiced understanding. 4. Marijuana abuse. She states she smokes it for pain control. Discussed if she felt it necessary to use marijuana, then to use edibles, but not smoke it. This suggestion does not apply to the cocaine, however - that she needs to simply stop. 5. Myositis. Her story is not consistent with a bone cancer at all. She admitted to getting an anterior thigh muscle biopsy, not a bone biopsy. It is likely related to some sort of connective tissue disease process, as she stated she is also on Enbrel. 6. Rheumatoid arthritis. History noted in nursing chart. Related to myositis? 7. Iron deficiency anemia. Patient denies any sickle cell disease or trait. 8. Schizophrenia. 9. Obesity with BMI >35 inducing a restrictive pulmonary physiology.
[2022-07-28 16:13] LABS: Glucometer 194 mg/dL (74-106)
[2022-07-28] MEDS: METHYLPREDNISOLONE SOD SUCC PF 125 MG/2 ML VIAL 60 MG IVP ×2 (16:35→21:36)
[2022-07-28 21:18] LABS: Glucometer 159 mg/dL (74-106)
[2022-07-28] MEDS: CEFTRIAXONE 1,000 MG in 0.9 % SODIUM CHLORIDE 50 ML 100 MG IV (21:35)
[2022-07-28] MEDS: IPRATROPIUM/ALBUTEROL SULFATE 3 ML AMPUL.NEB IH (23:02)
[2022-07-29] VITALS (17 sets, daily range): BP systolic 127–163; BP diastolic 80–82; PULSE 75–99; RESP 18; TEMP 36.3–37.2; O2SAT 84–100
[2022-07-29] MEDS: IPRATROPIUM/ALBUTEROL SULFATE 3 ML AMPUL.NEB IH ×3 (04:05→17:13)
--- NOTE | 2022-07-29 04:13 | RESP.RT ---
decreased to 3L at this time
[2022-07-29 04:48] LABS: Basophils Percent Auto 0.1 % (0.2-2.0); Hematocrit 33.3 % (36.0-48.0); Hemoglobin 9.8 g/dL (12.0-16.0); Immature Granulocytes Abs Auto 0.04 10^3/uL (0.00-0.03); Immature Granulocytes Pct Auto 0.4 % (0.0-0.5); Lymphocytes Absolute Auto 1.1 10^3/uL (1.2-3.8); Mean Corpuscular HGB Conc 29.4 g/dL (29.9-35.2); Mean Corpuscular Hemoglobin 23.5 pg (26.7-34.0); Mean Corpuscular Volume 79.9 fL (81.0-99.0); Mean Platelet Volume 9.4 fL (9.5-13.5); Monocytes Absolute Auto 0.3 10^3/uL (0.3-0.8); Monocytes Percent Auto 2.4 % (1.7-12.0); Neutrophils Absolute Auto 9.6 10^3/uL (1.4-6.5); Neutrophils Percent Auto 87.1 % (43.0-75.0); Platelet Count 442 10^3/uL (150-450); Red Blood Count 4.17 10^6/uL (4.20-5.40); Red Cell Distribution Width 17.9 % (11.0-15.0)
[2022-07-29] MEDS: METHYLPREDNISOLONE SOD SUCC PF 125 MG/2 ML VIAL 60 MG IVP ×2 (04:52→09:06)
[2022-07-29 05:18] LABS: Alanine Aminotransferase 101 U/L (14-59); Albumin Globulin Ratio 0.6; Albumin Level 2.8 g/dL (3.4-5.0); Alkaline Phosphatase 98 U/L (46-116); Anion Gap 14.8; Aspartate Amino Transferase 96 U/L (15-37); BUN Creatinine Ratio 19.1; Bilirubin Total 0.2 mg/dL (0.2-1.0); Carbon Dioxide 26.6 mmol/L (21.0-32.0); Chloride 103 mmol/L (98-107); Estimated GFR (African America >60 (>=60); Estimated GFR (Non-African Ame >60 (>=60); Globulin 4.6 g/dL; Glucose 164 mg/dL (74-106); Potassium 3.4 mmol/L (3.5-5.1); Sodium 141 mmol/L (136-145); Total Protein 7.4 g/dL (6.4-8.2)
[2022-07-29 05:27] LABS: Troponin I High Sensitivity 48.4 pg/mL (4.0-51.3)
[2022-07-29 07:47] LABS: Glucometer 160 mg/dL (74-106)
--- NOTE | 2022-07-29 08:49 | P.PLPN_ITS ---
Progress Note: A&P Assessment and Plan (1) Interstitial lung disease: Assessment and Plan: 1. Nonspecific interstitial pneumonia (NSIP) ILD. Still unclear if secondary to connective tissue disease (e.g. RA) or not. Records were requested from this pulmonary office but still have not arrived at this time. Will need those records before I can comment on any further plan of care. No plans to restart Ofev at this current time. 2. Chronic hypoxic respiratory failure.? Secondary to #1 +/- underlying cardiac disease. Near/at baseline O2 flow. Will need O2 @ discharge. 3. Cocaine abuse.? Patient was counseled not to use cocaine as it can adversely affect her lungs (especially if she smokes it) and cardiac status (likely a contributing factor to her RI 1-2 months ago). 4. Marijuana abuse.? Patient counseled not to smoke anything! 5. Myositis.? Related to rheumatoid arthritis? Records are essential to treat this patient as her history is confusing. 6. Rheumatoid arthritis.? History noted in nursing chart.? Related to myositis? 7. Iron deficiency anemia.? Patient denies any sickle cell disease or trait. Hemoglobin maintained. 8. Schizophrenia. 9. Bronchiecatsis, uncomplicated. No evidence of mucus plugging. 10. Obesity with BMI >35 inducing a restrictive pulmonary physiology. Fall Risk Details Alaniz Fall Scale Risk Level: No Fall Risk Current Medications: Current Medications Acetaminophen (Acetaminophen 325 Mg Tablet) 650 mg PO Q6H PRN PRN Reason: Pain Scale 4-6 Albuterol (Albuterol Sulfate 2.5 Mg/3 Ml Vial Neb) 2.5 mg IH Q2H PRN PRN Reason: Shortness Of Breath Last Admin: 07/28/22 16:31 Dose: 2.5 mg Albuterol/Ipratropium (Ipratropium/Albuterol Sulfate 3 Ml Ampul.Neb) 3 ml IH Q6H TIM Last Admin: 07/29/22 04:05 Dose: 3 ml Amiodarone HCl (Amiodarone Hcl 200 Mg Tablet) 200 mg PO Q12H TIM Last Admin: 07/28/22 19:22 Dose: 200 mg Budesonide (Budesonide 0.5 Mg/2 Ml Ampule Neb) 0.5 mg IH Q12H ITM Last Admin: 07/28/22 23:02 Dose: 0.5 mg Furosemide (Furosemide 40 Mg Tablet) 40 mg PO QD [facility] Last Admin: 07/28/22 08:14 Dose: 40 mg Gabapentin (Gabapentin 300 Mg Capsule) 600 mg PO Q12H [facility] Last Admin: 07/28/22 19:22 Dose: 600 mg Hyoscyamine (Hyoscyamine Sulfate 0.125 Mg Tab.Subl) 0.125 mg PO AC PRN PRN Reason: abdominal pain Ceftriaxone Sodium 1,000 mg/ (Sodium Chloride) 50 mls @ 100 mls/hr IV Q24H [facility] Last Infusion: 07/28/22 22:26 Dose: Infused Insulin Aspart (Insulin Aspart 300 Unit/3 Ml Pen) 3 - 15 unit SUBQ ACHS [facility]; Protocol Last Admin: 07/28/22 21:37 Dose: 2 unit Lactobacillus Acidophilus (L. Acidophilus/L.Bulgaricus 1 Packet Gran.Pack) 1 packet PO WM [facility] Last Admin: 07/28/22 16:35 Dose: 1 packet Methylprednisolone Sodium Succinate (Methylprednisolone Sod Succ Pf 125 Mg/2 Ml Vial) 60 mg IVP Q6H [facility] Last Admin: 07/29/22 04:52 Dose: 60 mg Nicotine (Nicotine 21 Mg Patch.Td24) 1 each TD Q24H PRN PRN Reason: Nicotine Cravings Omeprazole (Omeprazole 40 Mg Capsule.Dr) 40 mg PO QDAY [facility] Last Admin: 07/28/22 08:14 Dose: 40 mg Ondansetron HCl (Ondansetron Pf 4 Mg/2 Ml Vial) 4 mg IV Q6H PRN PRN Reason: Nausea And Vomiting Oxycodone HCl (Oxycodone Hcl 5 Mg Tablet) 5 mg PO TID PRN PRN Reason: pain Last Admin: 07/28/22 19:20 Dose: 5 mg Oxycodone/Acetaminophen (Oxycodone Hcl/Acetaminophen 5-325 Mg Tablet) 1 each PO TID PRN PRN Reason: pain Last Admin: 07/28/22 19:19 Dose: 1 each Potassium Chloride (Potassium Chloride 10 Meq Er Tablet) 10 meq PO QDAY [facility] Last Admin: 07/28/22 08:17 Dose: 10 meq Senna (Sennosides 8.6 Mg Tablet) 8.6 mg PO BID [facility] Last Admin: 07/28/22 21:36 Dose: 8.6 mg Subjective Subjective Interval history: Patient states her breathing is better. Feels near/at baseline O2 ~2-3L/min (she is not to be on 5L/min as she had previously stated). She was started on O2 after the RI ~1-2 months ago. I was able to review the patient's after visit summary from [facility] in [place]. She saw a Narciso Prakash NP there on 07/07/2022...pulm diagnoses are NSIP, bronchiectasis, unspecified asthma, rheumatoid arthritis, pulmonary fibrosis, and chronic hypoxic respiratory failure. No other worthwhile information was available. Exam Constitutional Vital Signs - 24 hr 07/28/22 09:49 07/28/22 10:52 07/28/22 10:40 Temperature 97.2 F L Pulse Rate 78 107 H Respiratory Rate 18 Blood Pressure [Right Arm] 136/72 H Pulse Oximetry 93 L Oxygen Delivery Method Nasal Cannula Nasal Cannula Oxygen Delivery Flow Rate 4 4 07/28/22 11:54 07/28/22 12:07 07/28/22 13:57 Temperature Pulse Rate 87 74 Respiratory Rate Blood Pressure [Right Arm] Pulse Oximetry 93 L Oxygen Delivery Method Oxygen Delivery Flow Rate 07/28/22 14:00 07/28/22 15:44 07/28/22 17:35 Temperature 97.7 F Pulse Rate 72 76 80 Respiratory Rate 18 Blood Pressure [Right Arm] 114/62 Pulse Oximetry 97 Oxygen Delivery Method Nasal Cannula Oxygen Delivery Flow Rate 5 07/28/22 20:00 07/28/22 21:36 07/28/22 22:00 Temperature 97.5 F L Pulse Rate 81 76 Respiratory Rate 123 H Blood Pressure [Right Arm] 109/71 Pulse Oximetry Oxygen Delivery Method Nasal Cannula Oxygen Delivery Flow Rate 3.5 07/28/22 23:39 07/28/22 23:39 07/29/22 00:00 Temperature Pulse Rate 88 79 Respiratory Rate 24 Blood Pressure [Right Arm] Pulse Oximetry 98 98 Oxygen Delivery Method Nasal Cannula Nasal Cannula Oxygen Delivery Flow Rate 4 4 07/29/22 02:00 07/29/22 04:06 07/29/22 04:27 Temperature Pulse Rate 83 80 84 Respiratory Rate 18 Blood Pressure [Right Arm] Pulse Oximetry 99 Oxygen Delivery Method Nasal Cannula Oxygen Delivery Flow Rate 4 07/29/22 04:44 07/29/22 05:45 07/29/22 07:59 Temperature 97.4 F L Pulse Rate 94 H 81 99 H Respiratory Rate 18 Blood Pressure [Right Arm] 163/80 H Pulse Oximetry Oxygen Delivery Method Nasal Cannula Oxygen Delivery Flow Rate Documenting provider has reviewed patient's vital signs: yes Common normals: no apparent distress HENMT Other: Wearing nasal cannula. Edentulous. Mallampati III Eye Common normals: PERRL Neck & C-Spine General: trachea midline Chest Common normals: inspection of chest normal and palpation of chest normal (posteriorly) Respiratory Common normals: normal respiratory effort Effort & inspection: able to speak in complete sentences and symmetric chest movement Other: Mildly coarse breath sounds, essentially unchanged from yesterday. Cardio Common normals: regular rate and regular rhythm GI Common normals: soft to palpation and non-tender Extremity Common normals: no clubbing, cyanosis or edema Neuro Common normals: no focal motor deficits Psych Common normals: mental status grossly normal Speech: normal speech
[2022-07-29] MEDS: OMEPRAZOLE 40 MG CAPSULE.DR PO (09:06)
[2022-07-29] MEDS: POTASSIUM CHLORIDE 10 MEQ ER TABLET PO (09:06)
[2022-07-29] MEDS: GABAPENTIN 300 MG CAPSULE 600 MG PO (09:06)
[2022-07-29] MEDS: FUROSEMIDE 40 MG TABLET PO (09:06)
[2022-07-29] MEDS: L. ACIDOPHILUS/L.BULGARICUS 1 PACKET GRAN.PACK PO (09:06)
[2022-07-29] MEDS: AMIODARONE HCL 200 MG TABLET PO (09:06)
[2022-07-29] MEDS: SENNOSIDES 8.6 MG TABLET PO (09:07)
[2022-07-29] MEDS: HYOSCYAMINE SULFATE 0.125 MG TAB.SUBL PO (09:07)
[2022-07-29] MEDS: INSULIN ASPART 300 UNIT/3 ML PEN SUBQ ×2 (09:07→11:40)
--- NOTE | 2022-07-29 09:19 | P.DS_ITS ---
DS: Providers Provider Date of admission: 07/27/22 18:51 Primary care physician: Non-Staff Physician, Consults: 07/27/22 Consult to Mine Promotor Routine 07/28/22 09:53 Consult to Pulmonology Routine Consulting Provider: Lopez Storey 07/28/22 09:56 Physical Therapy Eval and Treat Routine DS: Diagnosis Discharge Diagnosis (1) Interstitial lung disease: Plan Respiratory distress and acute hypoxia secondary to acute exacerbation of COPD secondary to acute bronchitis and lack of supplemental home oxygen.? Also history of pulmonary fibrosis likely.? Not certain the diagnosis but it has been finalized.? Still gathering history.? Continue with current treatment plan.? Consult to pulmonology for acute care and long-term management Hypokalemia-supplement Iron deficiency anemia-monitor daily L Hyperglycemia-Add insulin sliding scale Significant coronary artery disease status postcardiac arrest-elevated BNP,Hold off on further fluids, check echocardiogram GERD-continue with current medications Morbid obesity-diet management Patient will need to be in the hospital for more than 2 midnights. ? Continue with current treatment for acute exacerbation as above will last more tha2 daysn DS: Summary Hospital Course Hospital Course: Patient with known COPD or possibly interstitial lung disease presented to emergency room with increasing shortness of breath. Found to have acute hypoxic respiratory failure secondary to not being on her supplemental oxygen, discussion how much oxygen she is actually been on. Her prescription from [facility] is for just 2 L, she told us she takes between 4 to 5 L, not sure if she is adjusting it on her own, but when she flew up the airline would not let her carry with her. She had the rest of her medications. Patient was admitted, treated as an acute exacerbation of COPD. She did recover very quickly. Back on supplemental oxygen at 3 L her oxygen stays pretty stable. She failed her walk test. But did improve with slowly liters after the walk test. She will be discharged home in improving condition. Medications see list. Follow-up with PCP and pulmonology within the next week. Time Spent with Patient Time attestation: Total time spent providing and/or coordinating discharge services: Exam Constitutional Vital Signs - 24 hr 07/28/22 09:49 07/28/22 10:52 07/28/22 10:40 Temperature 97.2 F L Pulse Rate 78 107 H Respiratory Rate 18 Blood Pressure [Right Arm] 136/72 H Pulse Oximetry 93 L Oxygen Delivery Method Nasal Cannula Nasal Cannula Oxygen Delivery Flow Rate 4 4 07/28/22 11:54 07/28/22 12:07 07/28/22 13:57 Temperature Pulse Rate 87 74 Respiratory Rate Blood Pressure [Right Arm] Pulse Oximetry 93 L Oxygen Delivery Method Oxygen Delivery Flow Rate 07/28/22 14:00 07/28/22 15:44 07/28/22 17:35 Temperature 97.7 F Pulse Rate 72 76 80 Respiratory Rate 18 Blood Pressure [Right Arm] 114/62 Pulse Oximetry 97 Oxygen Delivery Method Nasal Cannula Oxygen Delivery Flow Rate 5 07/28/22 20:00 07/28/22 21:36 07/28/22 22:00 Temperature 97.5 F L Pulse Rate 81 76 Respiratory Rate 123 H Blood Pressure [Right Arm] 109/71 Pulse Oximetry Oxygen Delivery Method Nasal Cannula Oxygen Delivery Flow Rate 3.5 07/28/22 23:39 07/28/22 23:39 07/29/22 00:00 Temperature Pulse Rate 88 79 Respiratory Rate 24 Blood Pressure [Right Arm] Pulse Oximetry 98 98 Oxygen Delivery Method Nasal Cannula Nasal Cannula Oxygen Delivery Flow Rate 4 4 07/29/22 02:00 07/29/22 04:06 07/29/22 04:27 Temperature Pulse Rate 83 80 84 Respiratory Rate 18 Blood Pressure [Right Arm] Pulse Oximetry 99 Oxygen Delivery Method Nasal Cannula Oxygen Delivery Flow Rate 4 07/29/22 04:44 07/29/22 05:45 07/29/22 07:59 Temperature 97.4 F L Pulse Rate 94 H 81 99 H Respiratory Rate 18 Blood Pressure [Right Arm] 163/80 H Pulse Oximetry Oxygen Delivery Method Nasal Cannula Oxygen Delivery Flow Rate Chest Common normals: inspection of chest normal Respiratory Common normals: normal respiratory effort Effort & inspection: prolonged expiratory phase Auscultation: diminished lung sounds Cardio Common normals: regular rate and regular rhythm GI Common normals: Normal to inspection, nondistended, normoactive bowel sounds present DS: Data Data Completed and Pending Labs on day of discharge: Labs from last 24 hours 07/29/22 07/29/22 07/28/22 07:45 04:17 21:06 WBC 11.0 RBC 4.17 L Hgb 9.8 L Hct 33.3 L MCV 79.9 L MCH 23.5 L MCHC 29.4 L RDW 17.9 H Plt Count 442 MPV 9.4 L Neut % (Auto) 87.1 H Lymph % (Auto) 10.0 L [place] % (Auto) 2.4 Eos % (Auto) 0.0 L Baso % (Auto) 0.1 L Neut # (Auto) 9.6 H Lymph # (Auto) 1.1 L [place] # (Auto) 0.3 Eos # (Auto) 0.0 Baso # (Auto) 0.0 Abs Immat Gran (auto) 0.04 H Imm/Tot Granulo (auto) 0.4 Sodium 141 Potassium 3.4 L Chloride 103 Carbon Dioxide 26.6 Anion Gap 14.8 BUN 18.0 Creatinine 0.94 Est GFR ( Amer) >60 Est GFR (Non-Af Amer) >60 BUN/Creatinine Ratio 19.1 Glucose 164 H Calcium 9.0 Total Bilirubin 0.2 AST 96 H ALT 101 H Alkaline Phosphatase 98 Troponin I High Sens 48.4 NT-Pro-B Natriuret Pep 948.0 H Total Protein 7.4 Albumin 2.8 L Globulin 4.6 Albumin/Globulin Ratio 0.6 POC Glucose 160 H 159 H 07/28/22 07/28/22 16:11 11:01 WBC RBC Hgb Hct MCV MCH MCHC RDW Plt Count MPV Neut % (Auto) Lymph % (Auto) [place] % (Auto) Eos % (Auto) Baso % (Auto) Neut # (Auto) Lymph # (Auto) [place] # (Auto) Eos # (Auto) Baso # (Auto) Abs Immat Gran (auto) Imm/Tot Granulo (auto) Sodium Potassium Chloride Carbon Dioxide Anion Gap BUN Creatinine Est GFR ( Amer) Est GFR (Non-Af Amer) BUN/Creatinine Ratio Glucose Calcium Total Bilirubin AST ALT Alkaline Phosphatase Troponin I High Sens NT-Pro-B Natriuret Pep Total Protein Albumin Globulin Albumin/Globulin Ratio POC Glucose 194 H 217 H Discharge Plan Discharge Disposition: Home, Self-Care Condition: Good Discharge Medications: New prednisone 10 mg tablet 50 mg PO DAILY Qty: 47 0RF Rx Instructions: 5/day for 3 days. 4/day for 3 days, 3/day for 3 days, 2/day for 3 days, 1/day for 3 days, 1/2 /day for 4 days Continued albuterol sulfate 1.25 mg/3 mL solution for nebulization 1.25 mg inhalation Q8H PRN (Reason: shortness of breath or wheezing) amiodarone 200 mg tablet 200 mg PO Q12H budesonide-formoterol [Symbicort] 160-4.5 mcg/actuation HFA aerosol inhaler 2 inh INHALATION Q12H PRN (Reason: shortness of breath) furosemide 20 mg tablet 20 mg PO QDAY gabapentin 600 mg tablet 600 mg PO Q12H levalbuterol HCl 1.25 mg/3 mL solution for nebulization 1.25 mg INHALATION Q6H PRN (Reason: shortness of breath or wheezing) oxycodone-acetaminophen 10-325 mg tablet 1 tab PO Q8H pantoprazole 40 mg tablet,delayed release (DR/EC) 40 mg PO QDAY potassium chloride 10 mEq tablet extended release 10 meq PO QDAY sennosides [senna] 8.6 mg tablet 8.6 mg PO BID Activity: resume usual activities as tolerated and wear oxygen at all times Diet: regular diet Patient Instructions: Prednisone (By mouth), Using Oxygen at Home (DC), Hypoxia (GEN) Forms: Portal Instructions Follow Up Appointments: Establish care with a PCP and make an appointment
--- NOTE | 2022-07-29 09:53 | CM.NOTE ---
Rounds made with Dr. Palma. Potential discharge today based on ability to get oxygen set up. Gwen verbalizes understanding.
--- NOTE | 2022-07-29 10:10 | SWNOTE1 ---
Pt is ready for dc today, nursing will do walk test and pt will likely need home oxygen.
--- NOTE | 2022-07-29 11:10 | PC.NURSE ---
Patient oxygen level was 94% on room air at rest. With activity patient dropped to 84% on room air. Patient was placed on O2 at 3 LPM via NC and oxygen level recovered to 94% at rest and maintained with activity.
--- NOTE | 2022-07-29 11:19 | PC.NURSE ---
during ambulation patient dropped to 84% on room air
--- NOTE | 2022-07-29 11:20 | PC.NURSE ---
patient recovered to 94% on 3 LPM via NC at rest and maintained with activity.
[2022-07-29 11:28] LABS: Glucometer 242 mg/dL (74-106)
[2022-07-29] MEDS: BUDESONIDE 0.5 MG/2 ML AMPULE NEB IH (11:34)
[2022-07-29] MEDS: OXYCODONE HCL 5 MG TABLET PO (11:44)
--- NOTE | 2022-07-29 11:52 | SWNOTE1 ---
Pt qualified for home oxygen, 3 liters. WALLACE sent referral to [facility] for home O2 since it is in [place] where pt lives. WALLACE spoke with Inna at [facility] and they will review. WALLACE did explain to Inna about the out of state medicaid and pt did have oxygen back in [place]. WALLACE asked if pt will have to pay up front until medicaid kicks in? Inna will review and call SW back.
--- NOTE | 2022-07-29 12:06 | REH.PTDLY ---
Physical Therapy Daily Note PT Daily Note/Assess Start: 07/29/22 11:59 Freq: Status: Active Protocol: Document 07/29/22 10:30 LES (Rec: 07/29/22 12:05 LES [id number]) Physical Therapy Daily Note/Assessment Time In 10:05 Time Out 10:26 Pain Level 0 Pain Level 0 Subjective Stomach was upset earlier, but feeling better now. Therapeutic Exercise Minutes (minutes) 10 Therapeutic Exercise Units 1 Therapeutic Exercise Treatment Issued standing program to pt and reviewed. Instructed pt in B LE standing exs 10x ea for improved strength. Pt requires 2 short seated rest breaks due to fatigue and shortness of breath. Pt is on 3 L of O2. Therapeutic Activity Minutes (minutes) 7 Therapeutic Activity Units 0 Bed Mobility Ability Independent Chair Transfer Ability Independent Therapeutic Activity Comments Nursing asks for walk test to be done. Gait training with no AD and no O2. Pt starts at 94 % at rest and drops to 85% after 100 feet with no O2. Recovers back to 95% after O2 is applied and pt is seated focusing on breath. Pt is Ind with all transfers. Total Therapy Minutes 17 Total Physical Therapy Units 1 Daily Note Summary Pt will need O2 at home at [place]. Fatigues with standing program and gait training.
--- NOTE | 2022-07-29 13:41 | SWNOTE1 ---
WALLACE called [facility] to check on home oxygen. Inna stated Massiel is working on it and will call WALLACE back as soon as they have an answer.
--- NOTE | 2022-07-29 15:51 | SWNOTE1 ---
WALLACE spoke with Massiel from [facility] while in room with pt. They need a card on file, pt has 30 days for medicaid to kick in, if it does not then she will be charged $250.00. Pt voiced understanding. Nothing will be charged to her card at this time. Pt spoke with Massiel over the phone and credit card information was given. SW brought pt her oxygen tank and pt was informed to call [facility] once she is on her way home. Pt voices understanding. Pt will go home with 3 liters of oxygen from [facility].
--- NOTE | 2022-07-30 09:45 | CM.DCFOLLOWU ---
Person spoke with: patient How are you feeling? ok How is your pain? n/a Did you understand your discharge instructions? yes Do you have any questions about your discharge instructions? no Were you given any prescriptions at discharge? yes Were you able to get your prescriptions filled? yes Prednisone from [facility] Do you understand how to take your medications as ordered? Yes Do you have any questions about your follow up appointment and do you plan to keep your follow up appointment? No follow up appointment made. I encouraged patient to contact Dr. Palma and schedule a follow up and offered to do this for her. She said she does not want to do this until she receives her medicaid card in the mail. I did encourage patient to make this appointment sooner than later and educated pt. of importance of hospital follow up visit. Is there anything else that you would like to discuss? No Questions/Comments/Concerns/Other: n/a
== END 2022-07-29 17:45 | disposition home or self-care (01) ==
LOC: ER 18:31 → MS 18:52
PROVIDERS: Admitting Provider Family Medicine; Emergency Provider Emergency Medicine; Visit Provider Family Medicine
DX: J96.21 Acute and chronic respiratory failure with hypoxia (principal); J20.9 Acute bronchitis, unspecified; J98.4 Other disorders of lung; E87.6 Hypokalemia; D50.9 Iron deficiency anemia, unspecified; R73.9 Hyperglycemia, unspecified; I25.10 Atherosclerotic heart disease of native coronary artery without angina pectoris; K21.9 Gastro-esophageal reflux disease without esophagitis; E66.01 Morbid (severe) obesity due to excess calories; R79.89 Other specified abnormal findings of blood chemistry; F14.10 Cocaine abuse, uncomplicated; I25.2 Old myocardial infarction; M60.9 Myositis, unspecified; M06.9 Rheumatoid arthritis, unspecified; F20.9 Schizophrenia, unspecified; J84.9 Interstitial pulmonary disease, unspecified; J47.9 Bronchiectasis, uncomplicated; Z86.74 Personal history of sudden cardiac arrest; Z91.148 Patient's other noncompliance with medication regimen for other reason; R00.0 Tachycardia, unspecified; Z68.35 Body mass index [BMI] 35.0-35.9, adult
CPT/HCPCS: 0202U; 36415; 36600; 71045; 71275; 80053; 80307; 82805; 83605; 83880; 84484; 85025; 85378; 85610; 85730; 87040; 93005; 93306; 94618; 94640; 94761; 96374; 96375; 96376; 97110; 97161; 99285; G0378; J2930; Q9967

== ENCOUNTER 2024-08-17 08:18 | Emergency (ER) | payer MEDICAID, SELFPAY ==
--- OUTSIDE RECORDS SUMMARY | 2023-07-05 11:15 | XMS_ITS ---
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 * Medical History: Objective: * Vitals: Assessment: Plan: * Treatment: * Billing Information: * Visit Code: * Procedure Codes: * Electronic signature of Bird Fernandez MD on 08/17/2024 at 08:37 AM EDT Sign off status: Pending * Provider: Ada Fernandez MD Date: 07/05/2023 Generated for Printi ng/Faxing/eTransmitting on: 08/17/2024 08:37 AM EDT
--- OUTSIDE RECORDS SUMMARY | 2023-07-14 11:34 | XMS_ITS ---
Author Organization [facility] [place] Address [address] [place] [address] Care Team Providers Care Contract Negotiator Name Role Phone Angel Hu MD Primary Care Provider Lopez Dc [phone] REASON FOR VISIT Office Notes Request Encounters Encounter Location Date Provider Diagnosis Pulmonary Medicine [facility] [address] [place] [address] 07/14/2023 Lopez Storey Plan Of Treatment No Information Progress Notes * Gwen NEWMAN MDOB: 1 (53 yo F)Acc No.[id number]:07/14/2023 Patient: Silvio HENNESSYGwen :1970 A ge:53 Y S ex:Female Address:[address] [place] [id number] * true * Date: Generated for Printi ng/Fajonog/eTransmitting on: 0 08/17/2024 08:37 AM EDT
[2024-08-17] VITALS (14 sets, daily range): BP systolic 125–145; BP diastolic 76–99; PULSE 89–138; TEMP 36.7; O2SAT 98–99; BMI 27.4
--- OUTSIDE RECORDS SUMMARY | 2024-08-17 08:36 | XMS_ITS | Clinical Summary ---
Author Organization [facility] tem Address [facility] [id number] [address] 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 60 tablet 11 08/15/2022 Active sacubitriL-vals fabian (ENTRESTO) 24-26 mg tablet Take 1 tablet by mouth in the morning and 1 tablet before bedtime. 09/10/2022 Active melatonin (CIRCADIN) tablet Take 2 tablets (6 mg total) by mouth nightly. 30 tablet 2 01/22/2023 Active busPIRone (BUSPAR) 5 mg tablet Take 1 tablet (5 mg total) by mouth 3 (three) times a day. 90 tablet 2 04/05/2023 Active traZODone (DESYREL) 50 mg tablet Take 1 tablet (50 mg total) by mouth nightly as needed. 09/27/2023 Active predniSONE (DELTASONE) 20 mg tablet Take 1 tablet (20 mg total) by mouth in the morning. 10/06/2023 Active gabapentin (NEURONTIN) 600 mg tablet Take 1 tablet (600 mg total) by mouth once daily at bedtime. Active metoprolol succinate XL (TOPROL XL) 25 mg 24 hr tablet TAKE 0.5 TABLET (12.5 MG TOTAL) BY MOUTH IN THE MORNING AND BEFORE BEDTIME 180 tablet 2 04/11/2024 Active albuterol (PROVENTIL HFA;VENTOLIN HFA) 90 mcg/actuation inhalerIndicati ons:Pneumonia of both lower lobes due to infectious organism Inhale 2 puffs every 6 (six) hours as needed for wheezing. 18 g 11 04/14/2024 Active SYMBICORT 80-4.5 mcg/actuation inhaler Inhale 2 puffs in the morning and 2 puffs before bedtime. 04/28/2024 Active famotidine (PEPCID) 20 mg tablet Take 1 tablet (20 mg total) by mouth in the morning and 1 tablet (20 mg total) before bedtime. 04/28/2024 Active leflunomide (ARAVA) 10 mg tablet Take 1 tablet (10 mg total) by mouth in the morning. 05/10/2024 Active QUEtiapine (SEROquel) 25 mg tablet Take 1 tablet (25 mg total) by mouth in the morning and 1 tablet (25 mg total) before bedtime. 04/03/2024 Active Active Problems Problem Noted Date Diagnosed Date Colostomy complication 06/23/2024 Pneumonia of both lower lobes due to infectious organism 04/13/2024 Nontoxic nodular goiter 03/29/2024 Osteopenia of both hips 03/29/2024 Vitamin D deficiency 03/29/2024 Insomnia 08/16/2023 Community acquired pneumonia 03/01/2023 Pneumonia of right lower lobe due to infectious organism 03/01/2023 Type 2 diabetes mellitus wit hout complication, without long-term current use of insulin 01/22/2023 Non-healing surgical wound 11/12/2022 Pulmonary hypertension 10/17/2022 Elevated troponin 10/17/2022 S/P exploratory laparotomy - 09/01 evisceration with fascial closure and wound VAC placement 10/17/2022 Transaminitis 10/17/2022 Open abdominal wall wound 08/28/2022 S/P colon resection 08/27/[address] 08/27/2022 Anxiety 08/25/2022 Oxygen dependent 08/25/2022 Steroid dependent 08/25/2022 Chronic systolic heart failure 08/21/2022 Chronic hypoxemic respiratory failure 08/21/2022 Paroxysmal atrial fibrillation 08/10/2022 Hypokalemia 08/10/2022 Hypomagnesemia 08/10/2022 Bronchiectasis without complication 03/24/2022 08/13/2022 NSIP (nonspecific interstitial pneumonia) 202108/13/2022 Pulmonary fibrosis 11/25/2021 08/13/2022 Anemia 06/25/2020 08/13/2022 Overview (08/13/2022): Last Assessment & Plan: No abnormal vaginal bleeding or discharge. No blood in urine. No abnormal weight loss. No melena or bright red blood in stool. Patient with hemoglobin of 11.3 and MCV of 80 in June of this year. Iron studies obtained in June of this year consistent with anemia of chronic disease and some degree of iron deficiency anemia. Patient not on iron supplementation at this time. ILD (interstitial lung disease) 12/05/2019 08/13/2022 Overview (08/13/2022): Last Assessment & Plan: Followed by pulmonology. Specialist notes reviewed and plan discussed with patient. Patient has follow-up appointment on September 17. She is currently on prednisone daily and is taking. No acute concerns. Rheumatoid arthritis involving both hands 201908/13/2022 Overview (08/13/2022): Last Assessment & Plan: Followed by rheumatology. Patient currently on prednisone daily and sulfasalazine 500 mg twice daily. Recent specialist notes reviewed. Plan reviewed with patient. Also followed by pain management. Patient currently on tramadol, gabapentin, and Cymbalta. No acute concerns today. Schizophrenia 03/08/2019 08/13/2022 Overview (08/13/2022): With auditory hallucinations Fever 05/04/2018 Hypertension 07/23/2014 08/13/2022 Asthma 07/23/2014 08/25/2022 Recurrent major depression-severe 05/14/2014 08/13/2022 Polymyositis 08/10/2011 08/25/2022 Overview (08/25/2022): Last Assessment & Plan: Followed by rheumatology. Patient currently on prednisone daily. Recent specialist notes reviewed. Plan reviewed with patient. No acute concerns today. Resolved Problems Problem Noted Date Diagnosed Date Resolved Date Acute on chronic systolic heart failure 10/17/2022 11/19/2022 Sepsis 08/25/2022 10/17/2022 Perforated diverticulum 08/25/202209/23 Diverticulitis of large inte christiana with abscess 08/24/2022 10/17/2022 Diverticulitis of large inte christiana with abscess without bleeding 08/21/2022 10/17/2022 Acute congestive heart failure 08/10/2022 10/17/2022 Polymorphic ventricular tachycardia 05/22/202208/1311/19/2022 Encounters Date Type Department Care Team Description 07/31/2024 7:01 PM EDT - 07/31/2024 11:31 PM EDT Emergency [facility] [address] [place] [address] Cora Landaverde DO Diarrhea, unspecified type (Primary Dx) Discharge Disposition: Home 07/31/2024 Travel 07/19/2024 Telephone [facility] [address] [facility] [address] [place] [address] Sadia Prather RN 06/27/2024 Telephone [facility] In [address] [place] [phone] Ryan Rubio MD 06/23/2024 9:40 AM EDT - 06/24/2024 2:44 PM EDT Hospital Encounter [facility] - Acute Care [address] [place] [phone] Bebe Hernandez MD Gill, Kaleem U, MD Colostomy complication ([facility]) (Primary Dx); Vomiting and diarrhea Discharge Disposition: Home 06/23/2024 Travel 06/16/2024 Telephone [facility] [address] [place] [phone] Duke Zaman RN Loop 06/11/2024 8:10 AM EDT - 06/11/2024 11:37 AM EDT Emergency [facility] - Emergency [address] [place] [phone] Herbert Edmond MD Lower extremity edema (Primary Dx); Postoperative pain Discharge Disposition: Home 06/11/2024 Travel 05/22/2024 Telephone [facility] [address] [place] [phone] Evelyn Fraser RN 05/19/2024 2:30 PM EDT Office Visit [facility] [address] [place] [address] Tamia Whitfield, SENIOR DIRECTOR OF [employer] SOLUTIONS-WAREHOUSE SUPERVISOR 3RD SHIFT Paroxysmal atrial fibrillation [place] (Primary Dx); Chronic systolic heart failure [place] 05/19/2024 Telephone [facility] [address] [place] [phone] Lanette Munoz RN clearance 05/19/2024 Travel 05/15/2024 5:51 AM EDT - 05/17/2024 4:02 PM EDT Hospital Encounter [facility] [address] [place] [phone] Darian Mata MD Asif, Muhamid M, MD Polymyositis ([facility] (Primary Dx) Discharge Disposition: Custodial Facility-Medicare Cert from Last 3 Months Immunizations Immunization Administration Dates Next Due DTP 06/11/1975, 5,09/07/1972,1971 IPV 08/29/1974,09/07/1972,1971 Influenza High Dose Preserva tive Free IM 11/25/2021,12/05/2019 MMR 06/17/2017,11/08/1972 Pneumococcal Conjugate 20-valent 11/25/2021 Tdap 01/12/2024, 4(Deferred: Other - scanned under override pull) Family History Medical History Relation Name Comments Diabetes Paternal Grandmother Relation Name Status Comments Paternal Grandmother Social History Tobacco Use Types Packs/Day Years Used Date Smoking Tobacco: Former Cigarettes Q uit: 03/08/2014 Smokeless Tobacco: Never Tobacco Cessation:Counseling Given: Not Answered Alcohol Use Standard Drinks/Week Comments No 0 (1 standard drink = 0.6 oz pur e alcohol) [facility] Utilities Answer Date Recorded In the past 12 months has th e electric, gas, oil, or water company threatened to shut off services in your home? No 06/23/2024 AUDIT-C Answer Date Recorded Q1: How often do you have a drink containing alcohol? Never 08/13/2022 Q2: How many drinks containi ng alcohol do you have on a typical day when you are drinking? Patient does not drink Q3: How often do you have si x or more drinks on one occasion? Never 08/13/2022 PHQ-2 Answer Date Recorded Total Score 0 01/13/2023 PRAPARE - Transportation Answer Date Re corded In the past 12 months, has l ack of transportation kept you from medical appointments or from getting medications? No 03/2024 In the past 12 months, has l ack of transportation kept you from meetings, work, or from getting things needed for daily living? No 06/23/2024 Housing Instability Answer Date Recorde d Are you worried or concerned that in the next two months you may not have stable housing that you own, rent or stay in as a part of a household? No 06/23/2024 Childcare Answer Date Recorded Childcare Unknown 08/03/2018 Employment Answer Date Recorded Employment Unknown 08/03/2018 Hunger Screening Answer Date Recorded Within the past 12 months we worried whether our food would run out before we got money to buy more. Never True 07/31/2024 Within the past 12 months th e food we bought just didn't last and we didn't have money to get more. Never True 07/31/2024 Purpose - Life Answer Date Recorded Purpose and direction in life Unknown Comments No Sex and Gender Information Value Date Recorded Sex Assigned at Not on file Legal Sex Female 11:59 AM EDT Gender Identity Not on file Sexual Orientation Not on file Last Filed Vital Signs Vital Sign Reading Time Taken Comments Blood Pressure 112/74 07/31/2024 11:00 PM EDT Pulse 88 07/31/2024 11:00 PM EDT Temperature 36.8 C (98.2 F) 07/31/2024 7:00 PM EDT Respiratory Rate 19 07/31/2024 10:30 PM EDT Oxygen Saturation 99% 07/31/2024 11:00 PM EDT Inhaled Oxygen Concentration - - Weight 77.1 kg (170 lb) 07/31/2024 7:00 PM EDT Height 167.6 cm (5' 6 ) 07/31/2024 7:00 PM EDT Body Mass Index 27.44 07/31/2024 7:00 PM EDT Plan of Treatment Upcoming Encounters Date Type Department Care Team (Late st Contact Info) Description 10/10/2024 10:00 AM EDT Office Ultrasound [facility] Department of [facility] [address] [facility] [address] [place] [phone] Stacey Eastman MD [address] [facility] [place] [address] Health Maintenance Due Date Last Done Comments Diabetic Ophthalmology Exam 1971 Adult BMI Follow Up Plan 1989 Diabetic Foot Exam 1989 Zoster (Shingles) Vaccine (1 of 2) 2021 Depression Screening 01/14/2024 01/13/2023 Pap Smear 09/24/2024 09/24/2021 Influenza Vaccine 10/23/2024 11/25/2021, 12/05/2019 Adult BMI Screening 07/31/2025 07/31/2024 Tobacco Screening 07/31/2025 07/31/2024 DTaP,Tdap and Td Vaccines (6 - Td or Tdap) 01/11/2034 01/12/2024, 06/11/1975, 08/29/1974, Additional history exists Medical Devices Implanted Type Area Automotive Machinist Apprentice Device Identifier Shelf Expiration Date Model / Serial / Lot Recorder [employer] - [id number] - [id number] Implanted:Qty: 1 on 08/14/2022 at [facility] Other Implant [employer] CARD RHYTHM DEVICES 12/04/2023 [id number] / [id number] / Procedures Procedure Name Priority Date/Time Associated Diagnosis Comments TROP I, HIGH SENSITIVITY 1 HOUR STAT 07/31/2024 10:[address] ABDOMEN AND PELVIS W CONT STAT 07/31/2024 9:42 PM EDT TROPONIN I, HIGH SENSITIVITY 0 HOUR STAT 07/31/2024 9:10 PM EDT TROPONIN I, HIGH SENSITIVITY 0 HOUR STAT 07/31/2024 9:10 PM EDT MAGNESIUM STAT 07/31/2024 9:10 PM EDT B-TYPE NATRIURETIC PEPTIDE STAT 07/31/2024 9:10 PM EDT APTT STAT 07/31/2024 9:10 PM EDT PROTIME & INR STAT 07/31/2024 9:10 PM EDT BASIC METABOLIC PANEL STAT 07/31/2024 9:10 PM EDT CBC WITH AUTO DIFFERENTIAL STAT 07/31/2024 9:10 PM EDT XR CHEST 1 VW STAT 07/31/2024 8:49 PM EDT URINALYSIS STAT 07/31/2024 8:33 PM EDT URINE CULTURE STAT 07/31/2024 8:33 PM EDT SARS/FLU A+B/RSV BY NAAT/MOLECULAR (M4RT COLLECTION TUBE) STAT 07/31/2024 8:09 PM EDT ECG 12-LEAD STAT 07/31/2024 8:04 PM EDT ND REM INTERROG SCRMS <30 D PHYS/QHP Routine 07/16/2024 1:18 PM EDT ECG 12-LEAD Routine 06/24/2024 1:54 PM EDT BEDSIDE GLUCOSE Routine 06/24/2024 11:38 AM EDT COMPREHENSIVE METABOLIC PANEL STAT 06/24/2024 10:40 AM EDT MAGNESIUM Routine 06/24/2024 10:40 AM EDT EXTRA TUBES BLUE TOP Routine 06/24/2024 10:39 AM EDT EXTRA TUBES Routine 06/24/2024 10:39 AM EDT CBC WITH AUTO DIFFERENTIAL STAT 06/24/2024 10:39 AM EDT BEDSIDE GLUCOSE Routine 06/24/2024 7:52 AM EDT BEDSIDE GLUCOSE Routine 06/23/2024 9:17 PM EDT PULSE OXIMETRY, SPOT Routine 06/23/2024 6:[address] ABDOMEN AND PELVIS W CONT STAT 06/23/2024 12:25 PM EDT BLUE TOP STAT 06/23/2024 11:39 AM EDT RAINBOW DRAW STAT 06/23/2024 11:39 AM EDT LACTATE W/ REFLEX STAT 06/23/2024 11: 37 AM EDT COMPREHENSIVE METABOLIC PANEL STAT 06/23/2024 11:37 AM EDT CBC WITH AUTO DIFFERENTIAL STAT 06/23/2024 11:[address] CTA CHEST STAT 06/11/2024 10:20 AM EDT TROP I, HIGH SENSITIVITY 1 HOUR STAT 06/11/2024 9:58 AM EDT XR KNEE RT 3 VWS STAT 06/11/2024 9:37 AM EDT XR CHEST 1 VW STAT 06/11/2024 9:36 AM EDT D-DIMER STAT 06/11/2024 8:56 AM EDT TROPONIN I, HIGH SENSITIVITY STAT 06/11/2024 8:56 AM EDT B-TYPE NATRIURETIC PEPTIDE STAT 06/11/2024 8:56 AM EDT COMPREHENSIVE METABOLIC PANEL STAT 06/11/2024 8:56 AM EDT CBC WITH AUTO DIFFERENTIAL STAT 06/11/2024 8:56 AM EDT ECG 12-LEAD STAT 06/11/2024 8:15 AM EDT CBC WITH AUTO DIFFERENTIAL Routine 05/17/2024 5:12 AM EDT MAGNESIUM Routine 05/17/2024 5:12 AM EDT COMPREHENSIVE METABOLIC PANEL Routine 05/17/2024 5:12 AM EDT from Last 3 Months Results * Troponin I, High Sensitivity 1 Hour (07/31/2024 10:11 PM EDT) Only the most recent of2 resultswithin the time period is included. TROPONIN I, HIGH SENSITIVITY 9 <16 ng/L 07/31/2024 10:48 PM EDT [facility] Blood Venous blood / Unknown 07/31/2024 10:11 PM EDT 07/31/2024 10:21 PM EDT us Cora Prajapati Toniyoselin RICE LAB BLOOD ORDERABLES F inal Result [facility] [address] [place] [address], [place] * CT abdomen and pelvis with contrast (07/31/2024 9:42 PM EDT) Only the most recent of2 resultswithin the time period is included. Anatomical Region Laterality Modality Body, Abdomen, Body Covera N/A Compu ernesto Tomography 07/31/2024 9:50 PM EDT Narrative 07/31/2024 9:[address] ABDOMEN AND PELVIS WITH CONTRAST CLINICAL INFORMATION: Diarrhea, colostomy TECHNIQUE: Multidetector spiral CT scan of the abdomen and pelvis was performed following the uneventful administration of nonionic intravenous contrast. Coronal and sagittal reformatted images were obtained and reviewed. Automated exposure control was utilized. Following the intravenous injection of 100 cc of Omnipaque 300, a CT of the abdomen and pelvis and sagittal and coronal reformats obtained. All CT scans at this facility use dose modulation, iterative reconstruction, and/or weight based dosing when appropriate to reduce radiation dose to as low as reasonably achievable. COMPARISON: CT dated 06/23/2024 FINDINGS: Multifocal patchy groundglass infiltrates in the lower lungs as seen on the prior exam. Cardiomegaly. No acute abnormality seen in the liver, spleen, adrenal glands, pancreas, or kidneys. The gallbladder is contracted. There is a left lower quadrant ostomy with decreased inflammatory changes surrounding the colon at the ostomy. No dilated bowel loops or free fluid. No obstruction. No enlarged lymph nodes. IMPRESSION: 1. Decreased inflammation at the ostomy site. 2. No other change. Finalized by Yulia Villavicencio MD on 07/31/2024 9:53 PM Procedure Note Yulia Villavicencio MD - 07/31/2024 CT ABDOMEN AND PELVIS WITH CONTRAST CLINICAL INFORMATION: Diarrhea, colostomy TECHNIQUE: Multidetector spiral CT scan of the abdomen and pelvis was performedfollowing the uneventful administration of nonionic intravenous contrast.Coronal and sagittal reformatted images were obtained and reviewed.Automated exposure control was utilized. Following the intravenousinjection of 100 cc of Omnipaque 300, a CT of the abdomen and pelvis and sagittal and coronalreformats obtained. All CT scans at this facility use dose modulation,iterative reconstruction, and/or weight based dosing when appropriate toreduce radiation dose to as low as reasonably achievable. COMPARISON: CT dated 06/23/2024 FINDINGS: Multifocal patchy groundglass infiltrates in the lower lungs asseen on the prior exam. Cardiomegaly. No acute abnormality seen in theliver, spleen, adrenal glands, pancreas, or kidneys. The gallbladder iscontracted. There is a left lower quadrant ostomy with decreasedinflammatory changes surrounding the colon at the ostomy. No dilated bowel loops orfree fluid. No obstruction. No enlarged lymph nodes. IMPRESSION: 1. Decreased inflammation at the ostomy site. 2. No other change. Finalized by Yulia Villavicencio MD on 07/31/2024 9:53 PM Cora Landaverde DO IMG CT ORDERABLES Rachel l Result * Troponin I, High Sensitivity 0 Hour (07/31/2024 9:10 PM EDT) [facility] TROPONIN I, HIGH SENSITIVITY 7 <16 ng/L 07/31/2024 9:43 PM EDT [facility] Blood Venous blood / Unknown 07/31/2024 9:10 PM EDT 07/31/2024 9:13 PM EDT us Cora Landaverde DO LAB BLOOD ORDERABLES F inal Result [facility] [address] [place] [address], * (ABNORMAL) CBC auto differential (07/31/2024 9:10 PM EDT) Only the most recent of5 resultswithin the time period is included. [facility] WBC 7.7 4 - 11 x10E9/L 07/31/2024 9:26 PM EDT [facility] RBC Count 5.11 3.8 - 5.2 X10E12/L 07/31/2024 9:26 PM EDT [facility] Hemoglobin 12.5 11.7 - 15.5 g/dL 07/31/2024 9:26 PM EDT [facility] Hematocrit 39.2 35 - 47 % 07/31/2024 9:26 PM EDT [facility] MCV 77(L) 80 - 100 fL 07/31/2024 9:26 PM EDT [facility] MCH 24.5(L) 27 - 34 pg 07/31/2024 9:26 PM EDT [facility] MCHC 31.9(L) 32 - 36 g/dL 07/31/2024 9:26 PM EDT [facility] RDW 19.3(H) 11.5 - 15 % 07/31/2024 9:26 PM EDT [facility] Platelet Count 287 150 - 450 X10E9/L 07/31/2024 9:26 PM EDT [facility] MPV 8.5 7 - 12 fL 07/31/2024 9:26 PM EDT [facility] Neutrophils % 74.1 % 07/31/2024 9:26 PM EDT [facility] Lymphocytes % 21.0 % 07/31/2024 9:26 PM EDT [facility] Monocytes % 3.8 % 07/31/2024 9:26 PM EDT [facility] Eosinophils % 0.6 % 07/31/2024 9:26 PM EDT [facility] Basophils % 0.5 % 07/31/2024 9:26 PM EDT [facility] Neutrophils Absolute (A) 5.7 1.5 - 6.6 10*3/uL 07/31/2024 9:26 PM EDT [facility] Lymphocytes Absolute 1.6 1.0 - 3.5 10*3/uL 07/31/2024 9:26 PM EDT [facility] Monocytes Absolute 0.3 0.0 - 0.9 10*3/uL 07/31/2024 9:26 PM EDT [facility] Eosinophils Absolute 0.0 0.0 - 0.4 10*3/uL 07/31/2024 9:26 PM EDT [facility] Basophils Absolute 0.0 0.0 - 0.2 10*3/uL 07/31/2024 9:26 PM EDT [facility] Differential Type AUTOMATED DIFFERENTIAL 07/31/2024 9:26 PM EDT [facility] Blood Venous blood / Unknown 07/31/2024 9:10 PM EDT 07/31/2024 9:13 PM EDT us Cora L MatuszClearLine Mobileski DO LAB BLOOD ORDERABLES F inal Result Performing Organization Address City/[facility]/ZIP Co de Phone Number [address] [place] [address], [place] * APTT (07/31/2024 9:10 PM EDT) APTT 32 26 - 37 sec 07/31/2024 9:40 PM EDT [facility] Blood Venous blood / Unknown 07/31/2024 9:10 PM EDT 07/31/2024 9:13 PM EDT Cora L JoyTunesuszClearLine Mobile[employer]IA Corporation DO LAB BLOOD ORDERABLES F inal Result [address] [place] [address], [place] * (ABNORMAL) Protime & INR (07/31/2024 9:10 PM EDT) PROTIME 15.2(H) 9.8 - 13.2 sec 07/31/2024 9:40 PM EDT [facility] INR 1.3(H) 0.9 - 1.2 07/31/2024 9:40 PM EDT [facility] Blood Venous blood / Unknown 07/31/2024 9:10 PM EDT 07/31/2024 9:13 PM EDT Cora Alo [employer] DO LAB BLOOD ORDERABLES F inal Result Performing Organization Address City/[facility] de Phone Number [address] [place] [address], [place] * (ABNORMAL) B-type natriuretic peptide (07/31/2024 9:10 PM EDT) Only the most recent of2 resultswithin the time period is included. BNP 334(H) <=100 pg/mL 07/31/2024 10:16 PM EDT [facility] Blood Venous blood / Unknown 07/31/2024 9:10 PM EDT 07/31/2024 9:13 PM EDT Cora Alo [employer]ar[employer]ge[employer] LAB BLOOD ORDERABLES F inal Result Performing Organization Address [facility] de Phone Number [address] [place] [address], [place] * (ABNORMAL) Magnesium (07/31/2024 9:10 PM EDT) Only the most recent of3 resultswithin the time period is included. MAGNESIUM 1.6(L) 1.8 - 2.6 mg/dL 07/31/2024 9:32 PM EDT [facility] Blood Venous blood / Unknown 07/31/2024 9:10 PM EDT 07/31/2024 9:13 PM EDT Cora Alo [employer] LAB BLOOD ORDERABLES F inal Result Performing Organization Address City/[facility] Co de Phone Number [facility] [address] [facility] [place] [address], * (ABNORMAL) Basic Metabolic Panel (07/31/2024 9:10 PM EDT) SODIUM 141 134 - 146 mmol/L 07/31/2024 9:32 PM EDT [facility] POTASSIUM 3.5 3.5 - 5.0 mmol/L 07/31/2024 9:32 PM EDT [facility] CHLORIDE 110(H) 98 - 109 mmol/L 07/31/2024 9:32 PM EDT [facility] CARBON DIOXIDE 23 22 - 32 mmol/L 07/31/2024 9:32 PM EDT [facility] ANION GAP 8 5 - 15 mmol/L 07/31/2024 9:32 PM EDT [facility] BLOOD UREA NITROGEN 13 5 - 23 mg/dL 07/31/2024 9:32 PM EDT [facility] CREATININE 0.57 0.40 - 1.00 mg/dL 07/31/2024 9:32 PM EDT [facility] Comment:METHOD TRACEABLE TO IDMS STANDARD GLUCOSE 115(H) 65 - 99 mg/dL 07/31/2024 9:32 PM EDT [facility] CALCIUM 8.8 8.5 - 10.5 mg/dL 07/31/2024 9:32 PM EDT [facility] EGFR Non-Race Dependent >90 >=60 ml/min/1.7 3sq.m 07/31/2024 9:32 PM EDT [facility] Comment: eGFR not reported due to non-numeric value for Creatinine. Reported eGFR is based on the CKD-EPI 2020 equation that does not use a race coefficient. Blood Venous blood / Unknown 07/31/2024 9:10 PM EDT 07/31/2024 9:13 PM EDT us Cora Landaverde DO LAB BLOOD ORDERABLES F inal Result [facility] [address] [place] [address], [place] * X-ray chest 1 view (07/31/2024 8:49 PM EDT) Only the most recent of2 resultswithin the time period is included. Anatomical Region Laterality Modality Body, Chest N/A Computed Radiogr aphy 07/31/2024 8:58 PM EDT Narrative 07/31/2024 8:59 PM EDT EXAM: XR CHEST 1 VW CLINICAL INFORMATION: dyspnea. COMPARISON: 06/11/2024 FINDINGS: There are no pleural effusions. There are low lung volumes with some associated hypoventilatory changes. There is chronic elevation of the right hemidiaphragm and mild right basilar atelectasis. There are no focal consolidations. There is no pulmonary edema. Heart size is within normal limits. IMPRESSION: 1. No acute cardiopulmonary disease. Finalized by Cristóbal Hodgson MD on 07/31/2024 8:59 PM Procedure Note Cristóbal Hodgson MD - 07/31/2024 EXAM: XR CHEST 1 VW CLINICAL INFORMATION: dyspnea. COMPARISON: 06/11/2024 FINDINGS: There are no pleural effusions. There are low lung volumes with someassociated hypoventilatory changes. There is chronic elevation of theright hemidiaphragm and mild right basilar atelectasis. There are no focalconsolidations. There is no pulmonary edema. Heart size is within normallimits. IMPRESSION: 1. No acute cardiopulmonary disease. Finalized by Cristóbal Hodgson MD on 07/31/2024 8:59 PM us Cora Landaverde DO IM DIAGNOSTIC IMAGING ORDERABLES Final Result * (ABNORMAL) Urinalysis (07/31/2024 8:33 PM EDT) COLOR Yellow Yellow, Colorless 07/31/2024 9:31 PM EDT [facility] TURBIDITY Clear Clear 07/31/2024 9:31 PM EDT [facility] SPECIFIC GRAVITY 1.025 1.003 - 1.035 07/31/2024 9:31 PM EDT [facility] NITRITE Negative Negative 07/31/2024 9:31 PM EDT [facility] PH,URINE 6.0 5.0 - 8.5 07/31/2024 9:31 PM EDT [facility] LEUKOCYTE ESTERASE Negative Negative 07/31/2024 9:31 PM EDT [facility] PROTEIN 30 mg/dL(A) Negative 07/31/2024 9:31 PM EDT [facility] KETONES (URINE) Negative Negative 9:31 PM EDT [facility] UROBILINOGEN 0.2 eu/dL 0.2 eu/dL, 1.0 eu/dL 07/31/2024 9:31 PM EDT [facility] BILIRUBIN (URINE) Negative Negative 07/31/2024 9:31 PM EDT [facility] BLOOD/HGB Trace(A) Negative 07/31/2024 9:31 PM EDT [facility] R.B.CELLS 1 0 - 5 07/31/2024 9:31 PM EDT [facility] Comment:This is an appended report. These results have been appended to a previously preliminary verified report. SQUAMOUS EPITHELIUM 1 0 - 5 07/31/2024 9:31 PM EDT [facility] Comment:This is an appended report. These results have been appended to a previously preliminary verified report. GLUCOSE (URINE) Negative Negative, 250 mg/dL 07/31/2024 9:31 PM EDT [facility] Urine 07/31/2024 8:33 PM EDT 07/31/2024 8:57 PM EDT us Cora Landaverde DO URINE ORDERABLES Final Result [facility] [address] [place] [id number], [place] * Urine Culture Urine, Clean Catch Midstream (07/31/2024 8:33 PM EDT) CULTURE RESULTS 10-50,000 ORGANISMS/mL NORMAL UROGENITAL WILSON 08/01/2024 9:07 PM EDT [facility] Urine Urine specimen collection, clean catch / Unknown 07/31/2024 8:33 PM EDT 07/31/2024 8:57 PM EDT us Cora Landaverde DO MICROBIOLOGY - GENERAL ORDERABLES Final Result [facility] [address] [place] [address], * SARS/FLU A+B/RSV by NAAT/Molecular (M4RT Collection Tube) (07/31/2024 8:09 PM EDT) FLU A PCR Negative Negative 07/31/2024 9:23 PM EDT [facility] FLU B PCR Negative Negative 07/31/2024 9:23 PM EDT [facility] RSV BY PCR Negative Negative 07/31/2024 9:23 PM EDT [facility] SARS COV 2 BY PCR Not Detected Not Detected 07/31/2024 9:23 PM EDT [facility] Swab Nasopharyngeal structure / Unknown 07/31/2024 8:09 PM EDT 07/31/2024 8:16 PM EDT Narrative [facility] - 07/31/2024 9:23 PM EDT The Xpert Xpress SARS-CoV-2/Flu/RSV Plus test is a rapid, multiplexed real-time RT-PCR test intended for the simultaneous qualitative detection and differentiation of SARS-CoV-2, influenza A, influenza B and respiratory syncytial virus (RSV) viral RNA from individuals suspected of respiratory viral infection consistent with COVID-19 by Their healthcare provider. This test has not been validated in asymptomatic patients. The Xpert Xpress SARS-CoV-2 test is intended for use by qualified and trained operators who are performing tests using either [employer] DX or [employer] systems and is limited to laboratories that meet the CLIA requirements to perform high and moderate complexity tests. The Xpert Xpress SARS-CoV-2/Flu/RSV Plus is only for use under the Food and Drug Administration's Emergency Use Authorization. Results are for the simultaneous detection and differentiation of SARS-CoV-2, influenza A, influenza B and RSV nucleic acids in clinical specimens. SARS-CoV-2, influenza A, influenza B and RSV RNA identified by this test are generally detectable in upper respiratory samples during the acute phase of infection. Positive results are Indicative of the presence of the identified virus, but do not rule out bacterial infection or co-infection with other pathogens not detected by this test. Clinical correlation with patient history and other diagnostic information is necessary to determine patient infection status. The agent detected may not be the definite cause of disease. Negative results do not preclude SARS-CoV-2, influenza A, influenza B and RSV infection and should not be used as the sole basis for treatment or other patient management decisions. Negative results must be combined with clinical observations, patient history and epidemiological information. An Invalid result may occur with specimen-associated inhibition unable to be resolved with specimen repeat. Fact Sheet for Healthcare Providers: https://www.fda.gov/media/585396/download Fact Sheet for Patients: https://www.fda.gov/media/290296/download Cora Landaverde DO MICROBIOLOGY - GENERAL ORDERABLES Final Result Performing Organization Address City/[facility]/ZIP Co de Phone Number [facility] [address] [place] [address], * ECG 12 lead (07/31/2024 8:04 PM EDT) Only the most recent of3 resultswithin the time period is included. 07/31/2024 8:04 PM EDT Narrative [facility] - 07/31/2024 9:58 PM EDT Cora Landaverde DO ECG ORDERABLES Final Result Performing Organization Address City/[facility] Co de Phone Number [facility] * Remote Device Check (07/16/2024 1:18 PM EDT) Anatomical Region Laterality Modality Other 07/16/2024 1:18 PM EDT us Spike Jean Baptiste MD HEALTH MAINTENANCE Final Result * (ABNORMAL) Bedside Glucose *Place/Obtain serum glucose if >500 per glucometer. (06/24/2024 11:38AM EDT) Only the most recent of3 resultswithin the time period is included. Bedside Glucose (POC) 153(H) 65 - 99 mg/dL 06/24/2024 11:43 AM EDT [facility] arterial/capilla ry 06/24/2024 11:38 AM EDT 06/24/2024 11:43 AM EDT us Angel Hu MD POINT OF CARE TEST ORDERABLES F inal Result Performing Organization Address City/[facility]/ZIP Co de Phone Number [facility] [address] [place] [address], * (ABNORMAL) Comprehensive metabolic panel (06/24/2024 10:40 AM EDT) Only the most recent of4 resultswithin the time period is included. SODIUM 140 134 - 146 mmol/L 06/24/2024 11:09 AM EDT [facility] POTASSIUM 3.3(L) 3.5 - 5.0 mmol/L 06/24/2024 11:09 AM EDT [facility] CHLORIDE 109 98 - 109 mmol/L 06/24/2024 11:09 AM EDT [facility] CARBON DIOXIDE 25 22 - 32 mmol/L 06/24/2024 11:09 AM EDT [facility] ANION GAP 6 5 - 15 mmol/L 06/24/2024 11:09 AM EDT [facility] BLOOD UREA NITROGEN 10 5 - 23 mg/dL 06/24/2024 11:09 AM EDT [facility] CREATININE 0.48 0.40 - 1.00 mg/dL 06/24/2024 11:09 AM EDT [facility] Comment:METHOD TRACEABLE TO [facility] STANDARD GLUCOSE 105(H) 65 - 99 mg/dL 06/24/2024 11:09 AM EDT [facility] CALCIUM 8.5 8.5 - 10.5 mg/dL 06/24/2024 11:09 AM EDT [facility] TOTAL PROTEIN 6.3 6.0 - 8.0 g/dL 06/24/2024 11:09 AM EDT [facility] ALBUMIN 2.9(L) 3.2 - 5.3 g/dL 06/24/2024 11:09 AM EDT [facility] ALKALINE PHOSPHATASE 69 39 - 130 U/L 06/24/2024 11:09 AM EDT [facility] AST 24 <=41 U/L 06/24/2024 11:09 AM EDT [facility] ALT 20 <=31 U/L 06/24/2024 11:09 AM EDT [facility] BILIRUBIN,TOTAL 0.6 0.3 - 1.2 mg/dL 06/24/2024 11:09 AM EDT [facility] EGFR Non-Race Dependent >90 >=60 ml/min/1.7 3sq.m 06/24/2024 11:09 AM EDT [facility] Comment: eGFR not reported due to non-numeric value for Creatinine. Reported eGFR is based on the CKD-EPI 2020 equation that does not use a race coefficient. Blood Venous blood / Unknown 06/24/2024 10:40 AM EDT 06/24/2024 10:49 AM EDT us Zay Cisneros SENIOR DIRECTOR OF [employer] SOL[employer]IONS-WAREHOUSE SUPERVISOR 3RD SHIFT LAB BLOOD ORDERABLES Rachel l Result [facility] [address] [place] [address], [place] * Light Blue Top (06/24/2024 10:39 AM EDT) Extra Tube Auto Resulted 06/24/2024 12:01 PM EDT [facility] Blood Venous blood / Unknown 06/24/2024 10:39 AM EDT 06/24/2024 10:50 AM EDT us Angel Hu MD LAB BLOOD ORDERABLES Final Resu lt [address] [place] [address], [place] * Light Blue Top (06/23/2024 11:39 AM EDT) Extra Tube Auto Resulted 06/23/2024 1:01 PM EDT [facility] Blood Venous blood / Unknown 06/23/2024 11:39 AM EDT 06/23/2024 11:42 AM EDT Bebe Hernandez MD LAB BLOOD ORDERABLES Final Re sult Performing Organization Address [facility] Co de Phone Number [address] [place] [address], [place] * Lactate w/ Reflex (06/23/2024 11:37 AM EDT) LACTATE W/REFLEX 2.0 0.4 - 2.0 mmol/L 06/23/2024 12:01 PM EDT [facility] Blood Venous blood / Unknown 06/23/2024 11:37 AM EDT 06/23/2024 11:42 AM EDT Narrative [facility] - 06/23/2024 12:01 PM EDT Result did not trigger repeat Lactate, re-order if needed. us Kelly Ambrosio SENIOR DIRECTOR OF [employer] SOLUTIONS-WAREHOUSE SUPERVISOR 3RD SHIFT LAB BLOOD ORDERABLES F inal Result [facility] [address] [place] [address], [place] * CT angiogram chest (06/11/2024 10:20 AM EDT) Anatomical Region Laterality Modality Lung, Body, Chest, Vascular, Body Covera N/A Computed Tomography 06/11/2024 10:3 1 AM EDT Narrative 06/11/2024 10:[address] ANGIOGRAM CHEST CLINICAL INFORMATION: Leg swelling, shortness of breath PROCEDURE: CT angiography of the chest was performed utilizing thin section axial images with coronal and sagittal reformatted images generated. 3-D maximum intensity projection coronal and sagittal reformatted images generated and reviewed. Images acquired following the uneventful administration of 100 cc Omnipaque 350 nonionic intravenous contrast. Automated exposure control was utilized. COMPARISON: CT chest 08/14/2022. FINDINGS: PULMONARY ARTERIES: Image Quality is: Moderate, noting the following limitations: Suboptimal contrast opacification. Streak artifact from dense contrast in the SVC. No pulmonary embolism to the segmental level, allowing for typical artifacts limiting evaluation of some segmental branches. Normal caliber main pulmonary artery. LUNGS AND PLEURA: Central airways are patent and clear. Redemonstration of the subpleural, basilar predominant, reticulation with superimposed groundglass opacities. Mild lower lobe bronchiectasis. Interval decrease of the nodular consolidation involving the anterior right middle lobe, likely infectious/inflammatory in etiology. No new airspace opacities, pleural effusion or pneumothorax. CARDIOVASCULAR, MEDIASTINUM, AND THYROID: Stable mild cardiomegaly without pericardial effusion. No coronary calcifications. Ascending aorta is nonaneurysmal. Visualized thyroid gland is unremarkable. LYMPH NODES: Mildly prominent mediastinal lymph nodes, not meeting imaging size criteria for enlargement, stable compared to prior. Calcified right hilar lymph node, likely sequela of prior granulomatous disease. CHEST WALL: Unremarkable. UPPER ABDOMEN: Small hiatal hernia. BONES: No suspicious osseous lesion. IMPRESSION: 1. No pulmonary embolism to the segmental level, allowing for typical artifacts limiting evaluation of some segmental branches 2. Underlying interstitial lung disease with no new infiltrate/consolidation Finalized by Addi Pollard MD on 06/11/2024 10:40 AM Procedure Note Addi Pollard MD - 06/11/2024 CT ANGIOGRAM CHEST CLINICAL INFORMATION: Leg swelling, shortness of breath PROCEDURE: CT angiography of the chest was performed utilizing thinsection axial images with coronal and sagittal reformatted imagesgenerated. 3-D maximum intensity projection coronal and sagittalreformatted images generated and reviewed. Images acquired following theuneventful administration of 100 cc Omnipaque 350 nonionic intravenous contrast. Automated exposurecontrol was utilized. COMPARISON: CT chest 08/14/2022. FINDINGS: PULMONARY ARTERIES: Image Quality is: Moderate, noting the following limitations: Suboptimalcontrast opacification. Streak artifact from dense contrast in the SVC. No pulmonary embolism to the segmental level, allowing for typicalartifacts limiting evaluation of some segmental branches. Normal caliber main pulmonary artery. LUNGS AND PLEURA: Central airways are patent and clear. Redemonstration ofthe subpleural, basilar predominant, reticulation with superimposedgroundglass opacities. Mild lower lobe bronchiectasis. Interval decreaseof the nodular consolidation involving the anterior right middle lobe,likely infectious/inflammatory in etiology. No new airspace opacities, pleuraleffusion or pneumothorax. CARDIOVASCULAR, MEDIASTINUM, AND THYROID: Stable mild cardiomegaly withoutpericardial effusion. No coronary calcifications. Ascending aorta isnonaneurysmal. Visualized thyroid gland is unremarkable. LYMPH NODES: Mildly prominent mediastinal lymph nodes, not meeting imagingsize criteria for enlargement, stable compared to prior. Calcified righthilar lymph node, likely sequela of prior granulomatous disease. CHEST WALL: Unremarkable. UPPER ABDOMEN: Small hiatal hernia. BONES: No suspicious osseous lesion. IMPRESSION: 1. No pulmonary embolism to the segmental level, allowing for typicalartifacts limiting evaluation of some segmental branches 2. Underlying interstitial lung disease with no newinfiltrate/consolidation Finalized by Addi Pollard MD on 06/11/2024 10:40 AM us Herbert Edmond MD IMG CT ORDERABLES Final Res ult * X-ray knee right 3 views (06/11/2024 9:37 AM EDT) Anatomical Region Laterality Modality Lower Extremities, MSK, Knee Right Com puted Radiography 06/11/2024 9:39 AM EDT Narrative 06/11/2024 9:39 AM EDT XR KNEE RT 3 VWS Clinical history:postoperative pain right knee pain Comparison: 01/12/2024 Findings: Right knee arthroplasty device in place. There is no acute process fracture or dislocation. No joint effusion. Impression: No acute process of right knee arthroplasty device in place. Finalized by Zack Waggoner MD on 06/11/2024 9:39 AM Procedure Note Zack Waggoner MD - 06/11/2024 XR KNEE RT 3 VWS Clinical history:postoperative pain right knee pain Comparison: 01/12/2024 Findings: Right knee arthroplasty device in place. There is no acute processfracture or dislocation. No joint effusion. Impression: No acute process of right knee arthroplasty device in place. Finalized by Zack Waggoner MD on 06/11/2024 9:39 AM us Herbert Edmond MD IMG DIAGNOSTIC IMAGING [facility] Final Result * Troponin I, High Sensitivity (06/11/2024 8:56 AM EDT) Pathologist [facility] Troponin I, High Sensitivity 4 <16 ng/L 06/11/2024 9:51 AM EDT [facility] Blood Serum / Unknown 06/11/2024 8 :56 AM EDT 06/11/2024 9:05 AM EDT us Herbert Edmond MD LAB BLOOD ORDERABLES Final Result [address] [place] [address] * (ABNORMAL) D-Dimer (06/11/2024 8:56 AM EDT) Pathologist [facility] D-dimer 713(H) <255 ng/mL DDU 06/11/2024 9:52 AM EDT [facility] Comment: Results >=255ng/mL DDU: Results may be indicative of the presence of VTE. The use of the Wells score and further diagnostic tests should be considered. Elevated D-Dimer levels can also be associated with DIC, neoplasm, , trauma and liver disease. Elevated levels of rheumatoid factor may lead to an overestimation of the D-Dimer level. Blood (PLASMA) 06/11/2024 8: 56 AM EDT 06/11/2024 9:05 AM EDT us Herbert Edmond MD LAB BLOOD ORDERABLES Final Result [facility] [address] [facility] [place] [address] from Last 3 Months Insurance MEDICAID [place] Advance Directives * Full Code (Latest Code Status on File) Date Activated Date Inactivated Comments 06/23/2024 6:15 PM 06/24/2024 5:33 PM * Full Code Date Activated Date Inactivated Comments 05/15/2024 6:13 PM 05/17/2024 6:07 PM * Full Code Date Activated Date Inactivated Comments 04/13/2024 6:28 PM 04/14/2024 6:11 PM * Full Code Date Activated Date Inactivated Comments 03/02/2023 12:05 AM 03/05/2023 12:33 PM * Full Code Date Activated Date Inactivated Comments 10/17/2022 9:11 AM 10/21/2022 2:48 PM Care Teams Film Painter Relationship Specialty Start Date End Date Món[place] [address] [facility] [place] [address] PCP - General Family Medicine 06/23/24
--- OUTSIDE RECORDS SUMMARY | 2024-08-17 08:36 | XMS_ITS | Clinical Summary ---
Author Organization [facility] Address [address] [place] [address] Care Team Providers Care Cell Biologist Name Role Phone Unavailable Primary Care Provider Unavailabl e Allergies Active Allergy Reactions Criticality Noted Date Comments Ciprofloxacin Hives,Other (See Comments) High 10/04/2018 Sweating, coughing, and pain Penicillins Nausea And Vomiting Medium 03/13/2011 Medications amiodarone (PACERONE) 200 MG tablet Take 1 tablet (200 mg total) by mouth in the morning and 1 tablet (200 mg total) before bedtime. 60 tablet 3 Active docusate sodium (DSS) 100 MG capsule Take 1 capsule (100 mg total) by mouth in the morning and 1 capsule (100 mg total) before bedtime. 0 3 Active Empagliflozin (JARDIANCE) 10 MG tabletIndicatio ns:Heart Failure Take 1 tablet (10 mg total) by mouth in the morning. Indications: Cardiac Failure. 30 tablet 3 Active ferrous sulfate 325 (65 FE) MG tablet Take 1 tablet by mouth 2 (two) times a day with Breakfast and Dinner. 30 tablet 3 Active gabapentin (NEURONTIN) 300 MG capsule Take 2 capsules (600 mg total) by mouth 3 (three) times a day. 30 capsule 3 Active ibuprofen (MOTRIN) 600 MG tablet Take 1 tablet (600 mg total) by mouth every 8 (eight) hours. 0 3 Active insulin lispro 100 UNIT/ML injectionIndica tions:Hyperglyc emia Inject 0-12 Units under the skin 4 (four) times a day before meals and nightly Indications: High Blood Sugar. 10 mL 3 Active magnesium oxide 400 (240-250 Mg) MG tablet Take 1 tablet (400 mg total) by mouth in the morning. 0 3 Active melatonin tablet Take 2 tablets (6 mg total) by mouth nightly. 0 3 Active metoprolol succinate XL (TOPROL-XL) 50 MG 24 hr tablet Take 1 tablet (50 mg total) by mouth in the morning and 1 tablet (50 mg total) before bedtime. 30 tablet 3 Active multivitamin w/ minerals (THERA M PLUS) tablet tablet Take 1 tablet by mouth in the morning. 0 3 Active PARoxetine (PAXIL) 20 MG tablet Take 1 tablet (20 mg total) by mouth in the morning. 30 tablet 3 Active potassium chloride (KLOR-CON) 20 MEQ CR tablet Take 2 tablets (40 mEq total) by mouth in the morning. 30 tablet 3 Active traZODone (DESYREL) 50 MG tablet Take 1 tablet (50 mg total) by mouth nightly as needed for sleep. 30 tablet 3 Active senna (SENOKOT) 8.6 MG tablet Take 1 tablet (8.6 mg total) by mouth nightly. 0 3 Active predniSONE (DELTASONE) 10 MG tablet Take 1 tablet (10 mg total) by mouth in the morning. 14 tablet 3 Active Active Problems Problem Noted Date Diagnosed Date Sepsis 09/04/2022 Iron deficiency anemia 09/04/2022 Atrial fibrillation 09/04/2022 Acute on chronic systolic congestive heart failu re 09/04/2022 Chronic interstitial lung disease 09/04/2022 Chronic respiratory failure with hypoxia 023 Type 2 diabetes mellitus 09/04/2022 Depressive disorder 09/04/2022 Abdominal abscess 09/04/2022 History of colectomy 08/27/2022 Anxiety 08/25/2022 Diverticulitis of large inte christiana with perforation and abscess without bleeding 08/21/2022 Immunizations Immunization Administration Dates Next Due Moderna SARS-CoV-2 Vaccination 09/13/2022(Deferr ed: Offered and declined) Family History Medical History Relation Name Comments Diabetes Paternal Grandmother Relation Name Status Comments Paternal Grandmother Social History Tobacco Use Types Packs/Day Years Used Date Smoking Tobacco: Former Cigarettes Smokeless Tobacco: Never Tobacco Cessation:Counseling Given: Not Answered Alcohol Use Standard Drinks/Week Comments Never 0 (1 standard drink = 0.6 oz pur e alcohol) Comments Unknown Sex and Gender Information Value Date Recorded Sex Assigned at Not on file Legal Sex Female 11:52 AM EDT Gender Identity Not on file Sexual Orientation Not on file Last Filed Vital Signs Vital Sign Reading Time Taken Comments Blood Pressure 116/67 10/07/2022 7:25 AM EDT Pulse 60 10/07/2022 7:25 AM EDT Temperature 35.7 C (96.2 F) 10/07/2022 7:25 AM EDT Respiratory Rate 20 10/07/2022 7:25 AM EDT Oxygen Saturation 96% 10/07/2022 7:25 AM EDT Inhaled Oxygen Concentration - - Weight 93 kg (205 lb) 10/07/2022 4:00 AM EDT Height 167.6 cm (5' 6 ) 09/10/2022 7:40 PM EDT Body Mass Index 33.09 09/10/2022 7:40 PM EDT Plan of Treatment Health Maintenance Due Date Last Done Comments CT Colonography 1971 FIT-DNA (Cologuard) 1971 FIT 1971 FOBT 1971 HPV/PAP 1971 Sigmoidoscopy 1971 Annual Visit Topic 01/26/1972 IPV Vaccines (4 of 4 - 4-dose series) 03/01/1975 08/29/1974, 09/07/1972, 1971 Urine Microalbumin 1981 DTaP/Tdap/Td Vaccines (5 - Tdap) 1982 06/11/1975, 08/29/1974, 09/07/1972, Additional history exists Hepatitis C Screening 1989 Hepatitis B Vaccines (1 of 3 - 19+ 3-dose series) 1990 Pap Smear 01/26/1992 Cervical Cancer Screening 2001 HPV/Cotest 2001 HPV 2001 Mammogram 2011 Ophthalmology Exam 10/31/2022 10/31/2020 Hemoglobin A1C 12/13/2022 09/12/2022 Colonoscopy 12/18/2030 12/18/2020 Colorectal Cancer Screening 12/18/2030 MMR Vaccines Completed 06/17/2017, 11/08/1972 HIB Vaccines Aged Out No longer eligi ble based on patient's age to complete this topic HPV Vaccines Aged Out No longer eligi ble based on patient's age to complete this topic Hepatitis A Vaccines Aged Out No long er eligible based on patient's age to complete this topic Meningococcal Vaccine Aged Out No cisco kate eligible based on patient's age to complete this topic Pneumococcal Vaccine: Pediatrics (0 to 5 years) and At-Risk Patients (6 to 64 Years) Aged Out No longer eligible based on patient's age to complete this topic Procedures Procedure Name Priority Date/Time Associated Diagnosis Comments HEMOGLOBIN A1C Routine 09/12/2022 9:43 AM EDT from Last 3 Months or Most Recently Relevant to Health Maintenance Results * HEMOGLOBIN A1C (09/12/2022 9:43 AM EDT) Hemoglobin A1C 4.6 4.0 - 6.0 % 09/13/2022 8:44 AM EDT [facility] Estimate Average Glucose 85 mg/dL 09/13/2022 8:44 AM EDT [facility] Comment:The ADA and AACC rec ommend providing the estimated average glucose result to permit better patient understanding of their HBA1c result. 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
--- OUTSIDE RECORDS SUMMARY | 2024-08-17 08:36 | XMS_ITS | Patient Health Record ---
Author Organization [facility] vices Address [address] [place], [place] [id number] Support Name Relationship Address Phone Toy Mccray Emergency Contact [address] [place] [address] Gwen Garza Guarantor Unknown [phone] Reason For Referral No Information Problems Problem Type SNOMED Code ICD Code Onset Dates Problem Status W/U Status Risk Notes Problem Blood chemistry abnormal (757824054) Abnormal blood chemistry (790.6) (790.6) Active confirmed Comment:Transam inases CK was elevated but no Urine test, probably Rhabdomyolysis 2ry to Cocaine abuse. Pts denies falls, blacking out or assaults. Recheck Ck, CMP, CBC, Urine analysis Increase fluid intake, Problem Rhabdomyolysis (029992308) Disease characterized by destruction of skeletal muscle (M62.82) Active confirmed Comment:Pts was admitted to local urgent care facility and treated with IVF Probable cause is drug use but zyprexa could cause that in < 1% of cases. Pts is a known case of schizo and suicidal attempting in past. I spoke with [facility] medical collections and discussed the case with him' Apt for is made to See Dr Lynch at 8am this Wednesday Pts is instruced to: 1) keep Rt arm elavted and report worsening sx or pain 2) drink 16-30 oz water daily 3) Repeat Ck, CBC, CMP RTC in 2 weeks,Descripti on:Rhabdomyolys is Plan Of Treatment No Information Insurance Providers Payer Name Payer Address Payer Phone Subscriber Number Group Number Insured Name Patient Relationship to Insured Coverage Start Date Coverage End Date [employer] [facility] [address] [address] [place] [address] [id number] Gwen Garza Self - patient is the insured Medicaid [address] [place] [address] [id number] Gwen Garza Self - patient is the insured 1 [facility] [address] [place] [address] [id number] Greg Gwen Self - patient is the insured 1 8 Medical (General) History Surgical History Surgery Date(Month/Year) No previous surgeries, ProblemStatus: Kwabena albert,
--- OUTSIDE RECORDS SUMMARY | 2024-08-17 08:36 | XMS_ITS | Encounter Summary ---
Author Organization [facility] [employer] s tem Address [id number] [address] [place] [address] Care Team Providers Care Millroom Supervisor Name Role Phone Mónica Chao Primary Care Provider [phone] Encounter Details Date Type Department Care Team ([facility] st Contact Info) Description 09/03/2022 Telephone [facility] Infectious Disease [address] [facility] [address] [place] [address] Pallavi Zuñiga CMA Social History Tobacco Use Types Packs/Day Years Used Date Smoking Tobacco: Former Cigarettes Q uit: 03/08/2014 Smokeless Tobacco: Never Alcohol Use Standard Drinks/Week Comments No 0 (1 standard drink = 0.6 oz pur e alcohol) AUDIT-C Answer Date Recorded Q1: How often do you have a drink containing alcohol? Never 08/13/2022 Q2: How many drinks containi ng alcohol do you have on a typical day when you are drinking? Patient does not drink Q3: How often do you have si x or more drinks on one occasion? Never 08/13/2022 PHQ-2 Answer Date Recorded Total Score 0 08/13/2022 Housing Instability Answer Date Recorde d Are you worried or concerned that in the next two months you may not have stable housing that you own, rent or stay in as a part of a household? No 08/22/2022 Childcare Answer Date Recorded Childcare Unknown 08/03/2018 Employment Answer Date Recorded Employment Unknown 08/03/2018 Purpose - Life Answer Date Recorded Purpose and direction in life Unknown Comments No Sex and Gender Information Value Date Recorded Sex Assigned at Not on file Legal Sex Female 11:59 AM EDT Gender Identity Not on file Sexual Orientation Not on file documented as of this encounter Miscellaneous Notes * Telephone Encounter - Pallavi Zuñiga CMA - 09/03/2022 4:44 PM EDT ----- Message from TERRELL Clifford sent at 09/03/2022 8:38 AM EDT ----- Regarding: BP foloow-up If no already done so please schedule BP follow-up (must be seen before 09/14 as we may need to extend ATB treatment) * Telephone Encounter - Pallavi Zuñiga CMA - 09/03/2022 4:44 PM EDT Patient was scheduled for 10/10 at 11AM documented in this encounter Plan of Treatment Upcoming Encounters Date Type Department Care Team (Late st Contact Info) Description 10/10/2024 10:00 AM EDT Office Ultrasound [facility], A Department of [facility] [address] [place] [address] Stacey Eastman MD [address] [facility] [place] [address] documented as of this encounter Visit Diagnoses Not on filedocumented in this encounter Additional Health Concerns Infection Onset Date Last Indicated Resolved Time COVID-19 Rule-Out 01/27/2023 01/27/2023 01/27/2023 10:06 AM EST Respiratory Rule-Out 01/27/2023 01/27/2023 023 11:12 PM EST COVID-19 Rule-Out 03/01/2023 03/01/2023 03/01/2023 6:53 PM EST Respiratory Rule-Out 04/13/2024 04/13/2024 025 9:56 AM EST Respiratory Rule-Out 04/13/2024 04/13/2024 025 7:16 PM EST Enteric Rule-Out 06/24/2024 06/24/2024 06/24/2024 5:33 PM EDT Respiratory Rule-Out 07/31/2024 07/31/2024 025 9:23 PM EDT Assessment Noted Time PHQ-9 Depression Total Score: 0 08/14/19 10:53 AM EDT documented as of this encounter Care Teams Millroom Supervisor Relationship Specialty Start Date End Date Món[place] [address] [place] [address] PCP - General Family Medicine 06/23/24 documented as of this encounter
--- NOTE | 2024-08-17 08:37 | ECG_ITS ---
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 Measurements Intervals [place] Rate: 95 P: 60 WA: 178 QRS: -63 QRSD: 128 T: 61 QT: 404 QTc: 457 Interpretive Statements 1100 Sinus rhythm 3332 Anterolateral myocardial infarction, probably recent 46686 Inferior myocardial infarction with posterior extension, age undetermined 5234 Left ventricular hypertrophy with repolarization abnormality 6120 Possible right atrial enlargement 6220 Possible left atrial enlargement 0102 ARTIFACT PRESENT 9150 abnormal ECG Compared to ECG 07/27/2022 13:30:41 No significant changes Electronically Signed On 08-17-2024 19:50:03 EDT by MAXIMO KAPADIA M.D.
--- OUTSIDE RECORDS SUMMARY | 2024-08-17 08:37 | XMS_ITS | Encounter Summary ---
[facility] Address [id number] [address] [place] [address] Care Team Providers Care Electric Motors Salesperson Name Role Phone Mónica Chao Primary Care Provider [phone] Encounter Details Date Type Department Care Team ([facility] Contact Info) Description 02/19/2023 Telephone [facility] Phys[facility] Family Medicine [address] [place] [address] [place] [place] [address] Raul Olmstead CMA Social History Tobacco Use Types Packs/Day [...] Answer Date Recorded Total Score 0 01/13/2023 Housing Instability Answer Date Recorde d Are [...] got money to buy more. Never True 01/27/2023 Within the past 12 months th e food we bought just didn't last and we didn't have money to get more. Never True 01/27/2023 Purpose - Life Answer Date Recorded Purpose and direction in life Unknown Comments No Sex and Gender Information Value Date Recorded Sex Assigned at Not on file Legal Sex Female 11:59 AM EDT Gender Identity Not on file Sexual Orientation Not on file documented as of this encounter Miscellaneous Notes * Telephone Encounter - Raul Olmstead CMA - 02/19/2023 10:33 AM EST Patient was called because [facility] is not in network with insurance. Patient needs to callSporterpilot on the back of her card and find out who is covered and where she is comfortable driving. Then referral will need to be faxed to that office documented in this encounter Plan of Treatment Upcoming Encounters Date Type Department Care Team (Late st Contact Info) Description 10/10/2024 10:00 AM EDT Office Ultrasound [facility] Adult Endocrinology, A Department of [facility] [address] [place] [phone] Stacey Eastman MD [address] [facility] [place] [address] documented as of this encounter Visit Diagnoses Not on filedocumented in this encounter Additional Health Concerns Infection Onset Date Last Indicated Resolved Time COVID-19 Rule-Out 03/01/2023 03/01/2023 03/01/2023 6:53 PM EST Respiratory Rule-Out 04/13/2024 04/13/2024 025 9:56 AM EST Respiratory Rule-Out 04/13/2024 04/13/2024 025 7:16 PM EST Enteric Rule-Out 06/24/2024 06/24/2024 06/24/2024 5:33 PM EDT Respiratory Rule-Out 07/31/2024 07/31/202407/31/2 025 9:23 PM EDT Assessment Noted Time PHQ-9 Depression Total Score: 0 01/14/20 23 2:42 PM EST documented as of this encounter Care Teams Electric Motors Salesperson Relationship Specialty Start Date End Date Món[place] [address] [facility] [place] [address] PCP - General Family Medicine 06/23/24 documented as of this encounter
--- OUTSIDE RECORDS SUMMARY | 2024-08-17 08:37 | XMS_ITS | Encounter Summary ---
Author Organization [employer] tem Address [id number] [address] [place] [address] Care Team Providers Care Coordinator Mining Products Name Role Phone Mónica Chao Primary Care Provider [phone] Encounter Details Date Type Department Care Team ([facility] st Contact Info) Description 01/22/2023 Orders Only [facility] Internal Medicine/Pediatrics [address] [facility] [address] [place] [phone] Debbie Whitley, [facility] [address] [place] [address] Type 2 diabetes mellitus without complication, without long-term current use of insulin ([facility]) (Primary Dx) Social History Tobacco Use Types Packs/Day Years [...] on file documented as of this encounter Plan of Treatment Upcoming Encounters Date Type Department Care Team (Late st Contact Info) Description 10/10/2024 10:00 AM EDT Office Ultrasound [facility], A Department of [facility] [address] [facility] [address] [address] [place] [phone] Stacey Eastman MD [address] [facility] [place] [address] documented as of this encounter Visit Diagnoses Diagnosis Type 2 diabetes mellitus without complication, without long-term current use of insulin ([facility])- Primary documented in this encounter Additional Health Concerns Infection [...] documented as of this encounter Care Teams Coordinator Mining Products Relationship Specialty Start Date End Date Món[place] [address] [place] [address] PCP - General Family Medicine 06/23/24 documented as of this encounter
--- OUTSIDE RECORDS SUMMARY | 2024-08-17 08:37 | XMS_ITS | Encounter Summary ---
Author Organization [facility] Sys tem Address [id number] [address] [place] [address] Care Team Providers Care Mainframe Developer Name Role Phone Mónica Chao Primary Care Provider [phone] Encounter Details Date Type Department Care Team ([facility] st Contact Info) Description 02/01/2023 Telephone [facility] Cardiology [address] [place] [phone] Nick Ramos MD [address] [place] [address] Social History Tobacco Use Types Packs/Day Years [...] encounter Miscellaneous Notes * Telephone Encounter - Carmen Richardson - 02/01/2023 6:56 AM EST This is notification that we have received a referral for the patient. Please reach out to schedulefollow up appointment in your office. Pt l/s RDG 10/2022 Please check the referral tab in appt desk for details and to make sure to assign referral or schedule off of it. Thank you. * Telephone Encounter - Bebe Milan - 02/01/2023 6:56 AM EST T/C to pt to sched appt. Pt cx, states she is OON and will call PCP to let them know to send her elsewhere. T/C to PCP, spoke with James letting them know as well. documented in this encounter Plan of Treatment Upcoming Encounters Date Type Department Care Team (Late st Contact Info) Description 10/10/2024 10:00 AM EDT Office Ultrasound [facility], A Department of [facility] [address] [facility] [address] [place] [phone] Stacey Eastman MD [address] [place] [address] documented as of this encounter Visit Diagnoses Not on filedocumented in this encounter Additional Health Concerns Infection Onset Date Last Indicated Resolved Time Respiratory Rule-Out 01/27/2023 01/27/2023 023 11:12 PM [...] documented as of this encounter Care Teams Mainframe Developer Relationship Specialty Start Date End Date Món[place] [address] [place] [address] PCP - General Family Medicine 06/23/24 documented as of this encounter
--- OUTSIDE RECORDS SUMMARY | 2024-08-17 08:37 | XMS_ITS | Encounter Summary ---
Author [facility] Address [id number] [address] [place] [address] Care Team Providers Care Auto Service Writer Name Role Phone Mónica Chao Primary Care Provider [phone] Encounter Details Date Type Department Care Team ([facility] st Contact Info) Description 05/22/2024 [facility]phone [facility] [address] [place] [phone] Evelyn Fraser, [employer] Social History Tobacco Use Types Packs/Day Years Used Date Smoking Tobacco: Former Cigarettes Q uit: 03/08/2014 Smokeless Tobacco: Never Alcohol Use Standard Drinks/Week Comments No 0 (1 standard drink = 0.6 oz pur e alcohol) [facility] Utilities Answer Date Recorded In the past 12 months has e electric, gas, oil, or water company threatened to shut off services in your home? No 05/16/2024 AUDIT-C Answer Date Recorded Q1: How often [...] medical appointments or from getting medications? No 04/23 In the past 12 months, has l ack of transportation kept you from meetings, work, or from getting things needed for daily living? No 05/16/2024 Housing Instability Answer Date Recorde d Are you worried or concerned that in the next two months you may not have stable housing that you own, rent or stay in as a part of a household? No 05/16/2024 Childcare Answer Date Recorded Childcare Unknown 08/03/2018 Employment Answer Date Recorded Employment Unknown 08/03/2018 Hunger Screening Answer Date Recorded Within the past 12 months we worried whether our food would run out before we got money to buy more. Never True 05/16/2024 Within the past 12 months th e food we bought just didn't last and we didn't have money to get more. Never True 05/16/2024 Purpose - Life Answer Date Recorded Purpose and direction in life Unknown Comments No Sex and Gender Information Value Date Recorded Sex Assigned at Not on file Legal Sex Female 11:59 AM EDT Gender Identity Not on file Sexual Orientation Not on file documented as of this encounter Miscellaneous Notes * Telephone Encounter - Evelyn Fraser RN - 05/22/2024 10:01 AM EDT Images from the original note were not included. Tamia Whitfield, TOWER HAND-CERTIFIED RESIDENTIAL MEDICATION AIDE P Ppc Ep Clinical Staff Hi there, I saw Gwen Garza in the office today. It looks like she has a history of an implantableloop recorder placed while she was living in [place]. She does not have any home monitoring Filiberto am not sure if anyone is able to help with this? It looks like she was supposed to follow up withEP after a hospitalization 09/2022. It does not look like she saw anyone. If anyone might be able to help out, that would be awesome :) Thank you so much! * Telephone Encounter - Duke Zaman RN - 05/22/2024 10:01 AM EDT Pt was implanted in July 2022 by SUSAN at [facility]. We did receive transmissions for one month and then nomore. We sent her no transmit letters in August and October with out any response from her. I will reach out to her related to reestablishing home monitoring/mrm Spoke with pt. She no longer has home monitor for Loop. New monitor ordered from [employer] and willbe mailed to her home/mrm * Telephone Encounter - TERRELL Whittaker - 05/22/2024 10:01 AM EDT Hi there, thank you for all your help! * Telephone Encounter - Duke Zaman RN - 05/22/2024 10:01 AM EDT Finally got Home monitor set up with pt. All events August 2022 thru 06/16/22 reviewed. No sustained Tachy event Longest 9 min 11 sec Jan 2024, Many events have oversensing. Pause events are undersensing of sinus. AF events appear to be AT with PACs, under & oversensing. Will continue to monitor/mrm * Telephone Encounter - TERRELL Whittaker - 05/22/2024 10:01 AM EDT Thank you so much! documented in this encounter Plan of Treatment Upcoming Encounters Date Type Department Care Team (Late st Contact Info) Description 10/10/2024 10:00 AM EDT Office Ultrasound [facility], A Department of [facility] [address] [place] [phone] Stacey Eastman MD [address] [facility] [place] [address] documented as of this encounter Visit Diagnoses Not on filedocumented in this encounter Additional Health Concerns Infection Onset Date Last Indicated Resolved Time Enteric Rule-Out 06/24/2024 06/24/2024 06/24/2024 5:33 PM EDT Respiratory Rule-Out 07/31/2024 07/31/2024 025 9:23 PM EDT Assessment Noted Time PHQ-9 Depression Total Score: 0 01/14/20 23 2:42 PM EST documented as of this encounter Care Teams Auto Service Writer Relationship Specialty Start Date End Date Món[place] [address] [place] [address] PCP - General Family Medicine 06/23/24 documented as of this encounter
--- OUTSIDE RECORDS SUMMARY | 2024-08-17 08:37 | XMS_ITS | Encounter Summary ---
Author Organization [facility] [employer] s tem Address [id number] [address] [place] [address] Care Team Providers Care Quilting Supervisor Name Role Phone Mónica Chao DO Primary Care Provider [phone] Encounter Details Date Type Department Care Team ([facility] st Contact Info) Description 06/10/2023 Telephone [facility] Family Medicine [address] [place] [address] [place] [address] Lennie Sharpe CMA Social History Tobacco Use Types Packs/Day [...] got money to buy more. Never True 03/09/2023 Within the past 12 months th e food we bought just didn't last and we didn't have money to get more. Never True 03/09/2023 Purpose - Life Answer Date Recorded Purpose and direction in life Unknown Comments No Sex and Gender Information Value Date Recorded Sex Assigned at Not on file Legal Sex Female 11:59 AM EDT Gender Identity Not on file Sexual Orientation Not on file documented as of this encounter Miscellaneous Notes * Telephone Encounter - Ella Jaam CNA - 06/10/2023 10:31 AM EDT Gwen called office inquiring about gabapentin refill that was prescribed by Yuniel Hair on her last hospital admission. Her appointment on 06/07/2023 was a no show and she has an appointment on 06/25/2023. MA extended this appointment to 30 minutes to give provider enough time to cover her concerns. * Telephone Encounter - TERRELL Gonzalez - 06/10/2023 10:31 AM EDT Thank you so much. Rx sent enough until she is seen in the office * Telephone Encounter - Patricia Tobin CMA - 06/10/2023 10:31 AM EDT Tried to call patient but no answer and no voicemail. documented in this encounter Plan of Treatment Upcoming Encounters Date Type Department Care Team (Late st Contact Info) Description 10/10/2024 10:00 AM EDT Office Ultrasound [facility], A Department of [facility] [address] [place] [address] Stacey Eastman MD [address] [place] [address] documented as of this encounter Visit Diagnoses Not on filedocumented in this encounter Additional Health Concerns Infection Onset Date Last Indicated Resolved Time Respiratory Rule-Out 04/13/2024 04/13/2024 025 9:56 AM EST Respiratory Rule-Out 04/13/2024 04/13/2024 025 7:16 PM EST Enteric Rule-Out 06/24/2024 06/24/2024 06/24/2024 5:33 PM EDT Respiratory Rule-Out 07/31/2024 07/31/2024 025 9:23 PM EDT Assessment Noted Time PHQ-9 Depression Total Score: 0 01/14/20 23 2:42 PM EST documented as of this encounter Care Teams Quilting Supervisor Relationship Specialty Start Date End Date Món[place] [address] [place] [address] PCP - General Family Medicine 06/23/24 documented as of this encounter
--- OUTSIDE RECORDS SUMMARY | 2024-08-17 08:37 | XMS_ITS | Patient Health Record ---
Author Organization [facility] [place] Address [address] [place] [address] Care Team Providers Care Burn Table Operator Name Role Phone Angel Hu MD Primary Care Provider Unavailabl e Results Component Value Reference Range Notes CULTURE (Not yet reviewed by provider) Interpretation: Performing Lab:[facility], [address] [place] [address] PH:[phone] Notes/Report: Specimen Description .LEG Direct Exam MANY NEUTROPHILS Culture NO GROWTH 5 DAYS Report Status FINAL 03/13/2024 Direct Exam NO ORGANISMS SEEN Culture NO GROWTH 5 DAYS Report Status FINAL 03/13/2024 SYNCT (Not yet reviewed by momo estrella) Interpretation: Performing Lab:[facility], [address] [place] [address] PH:[phone] Notes/Report: Type of Specimen SYNOVIAL Color Yellow Appearance Cloudy Clot Check None Seen Synovial Fluid TNC 44112 <200 cells/uL RBC, Synovial Fluid 53153 No normal rang e established for fluids. Neutrophils 83 <25 % Lymphocyte 7 No normal range established for fluids. [place]/Macrophage 8 No normal range established for fluids. Other Cells 2 SYNOVIAL LINING CE LLS No normal range established for fluids. FLCRYS (Not yet reviewed by provider) Interpretation: Performing Lab:[facility], [address] [place] [address] PH:[phone] Notes/Report: Type of Specimen .SYNOVIAL FLUID Crystals,Fluid NEGATIVE NO CRYSTALS SEEN NEG Pathologist Review: Reviewed by patholog ist: Cristy Brownlee M.D. Reason For Referral No Information Problems Problem Type SNOMED Code ICD Code Onset Dates Problem Status W/U Status Risk Notes Problem 87799112 Obstructive slee p apnea (adult) (pediatric) (G47.33) Active confirmed Problem 989938861 Mild persistent asthma, uncomplicated (J45.30) Active confirmed Problem 25630254 Pulmonary fibrosis, unspecified (J84.10) Active confirmed Problem Chronic respiratory failure (44541345) Chronic respiratory failure with hypoxia (J96.11) Active confirmed Problem 95075410 Rheumatoid arthritis, unspecified (M06.9) Active confirmed Problem Morbid obesity (856958128) Morbid obesity (E66.01) Active confirmed Problem Gastroesophageal reflux disease (969397304) GERD (gastroesophageal reflux disease) (K21.9) Active confirmed Problem Anxiety (91448072) Anxiety (F41.9) Active confi rmed Problem Atrial fibrillation (51885405) Paroxysmal a-fib (I48.0) Active confirmed Problem Depression (482041388) Depression (F32.9) Active confirmed Problem Right bundle branch block (54920968) RBBB (I45.10) Active confirmed Problem Insomnia (302055045) Insomnia (G47.00) Active confirmed Problem Diverticulitis of colon with perforation (84120411) Diverticulitis of colon with perforation (K57.20) Active confirmed Problem Neuropathy (826525635) Neuropathy (G62.9) Active confirmed Problem Acute exacerbation of chronic obstructive airways disease (449788690) COPD exacerbation (J44.1) Active confirmed Problem Iron deficiency anemia (31554750) Iron deficiency anemia (D50.9) Active confirmed Problem Interstitial lung disease (154252824) Interstitial lung disease (J84.9) Active confirmed Problem Leukocytosis (473701529) Leukocytosis (D72.829) Active confirmed Problem Iron deficiency anemia (16193094) Anemia, iron deficiency (D50.9) Active confirmed Problem Anemia of chronic disease (595387629) Anemia of chronic disease (D63.8) Active confirmed Problem Atrial fibrillation (45796263) AF (atrial fibrillation) (I48.91) Active confirmed Problem Cocaine abuse (58898802) Cocaine use (F14.10) Active confirmed Problem Dependence on supplemental oxygen (229205389567) O2 dependent (Z99.81) Active confirmed Problem Cardiomyopathy associated with another disorder (166175579) Non-ischemic cardiomyopathy (I42.8) Active confirmed Problem Type II diabetes mellitus without complication (294506652) Diabetes (E11.9) Active confirmed Problem Acute on chronic heart failure with reduced ejection fraction and diastolic dysfunction (I50.43) Active confirmed Problem Acute disorder of cardiovascular system (852761468) Acute disorder of cardiovascular system (I25.10) Active confirmed Plan Of Treatment Pending Test Test Name Order Date FLCRYS 03/08/2024 CULTURE 03/08/2024 SYNCT 03/08/2024 Insurance Providers Payer Name Payer Address Payer Phone Subscriber Number Group Number Insured Name Patient Relationship to Insured Coverage Start Date Coverage End Date [employer] [place] [employer] [address] [address] [place] [address] [phone] [id number] Gwen Garza Self - patient is the insured 3
--- OUTSIDE RECORDS SUMMARY | 2024-08-17 08:37 | XMS_ITS | Encounter Summary ---
Author Organization [facility] tem Address [id number] [address] [place] [address] Care Team Providers Care Cryptographic Vulnerability Analyst Name Role Phone Mónica Chao Primary Care Provider [phone] Encounter Details Date Type Department Care Team ([facility] Contact Info) Description 04/08/2023 Telephone [facility] Family Medicine [address] [place] [address] [place] [address] Raul Olmstead CMA Social History [...] Telephone Encounter - Raul Olmstead CMA - 04/08/2023 10:18 AM EST Insurance sent office a denial for prior auth for Fluticasone Propion. An alternative will need to be called in if still applicable. * Telephone Encounter - TERRELL Gonzalez - 04/08/2023 10:18 AM EST Alternative sent. Looks like also PA. Let me know if it states the preferred inhaler. Thank you. documented in this encounter Plan of Treatment Upcoming Encounters Date Type Department Care Team (Late st Contact Info) Description 10/10/2024 10:00 AM EDT Office Ultrasound [facility], A Department of [facility] [address] [facility] [address] [place] [address] Stacey Eastman MD [address] [facility] [place] [address] documented as of this encounter Visit Diagnoses [...] documented as of this encounter Care Teams Cryptographic Vulnerability Analyst Relationship Specialty Start Date End Date Món[place] [address] [facility] [place] [address] PCP - General Family Medicine 06/23/24 documented as of this encounter
--- OUTSIDE RECORDS SUMMARY | 2024-08-17 08:37 | XMS_ITS | Encounter Summary ---
Author Organization [facility] Address [id number] [address] [place] [address] Care Team Providers Care Pipeline Executive Name Role Phone Mónica Chao DO Primary Care Provider [phone] Encounter Details Date Type Department Care Team ([facility] st Contact Info) Description 01/22/2023 Orders Only [facility] [address] [place] [phone] Debbie Whitley, [facility] [address] [place] [phone] Open wound of abdominal wall, subsequent encounter (Primary Dx); Type 2 diabetes mellitus without complication, without long-term current use of insulin ([facility]) Social History Tobacco Use Types Packs/Day Years [...] Description 10/10/2024 10:00 AM EDT Office Ultrasound [facility] Adult [facility]ology, A Department of [facility] [address] [facility] [address] [place] [address] Stacey Eastman MD [address] [facility] [place] [address] documented as of this encounter Visit Diagnoses Diagnosis Open wound of abdominal wall, subsequent encounter- Primary Type 2 diabetes mellitus without complication, without long-term current use of insulin ([facility]) documented in this encounter Additional Health Concerns [...] documented as of this encounter Care Teams Pipeline Executive Relationship Specialty Start Date End Date [place]ón[place] [address] [facility] [place] [address] PCP - General Family Medicine 06/23/24 documented as of this encounter
--- OUTSIDE RECORDS SUMMARY | 2024-08-17 08:37 | XMS_ITS | Encounter Summary ---
Author Organization [facility] Address [id number] [address] [place] [address] Care Team Providers Care Golf Ball Marker Name Role Phone Mónica Chao Primary Care Provider [phone] Encounter Details Date Type Department Care Team ([facility] Contact Info) Description 01/29/2023 Telephone [facility]/Pediatrics [address] [phone] Debbie Whiltey APRN-[facility] [address] [place] [phone] Social History Tobacco Use Types Packs/Day Years [...] encounter Miscellaneous Notes * Telephone Encounter - Funmilayo Pelaez - 01/29/2023 9:31 AM EST Gwen called and said that she called the [facility] and they do not have a referral on her? Also, she said that Cardiology in [place], does not take her Medicaid. She is wondering if there is another kiss machine operator that she can go to? Please advise * Telephone Encounter - TERRELL Gonzalez - 01/29/2023 9:31 AM EST I placed referral to cardiology. And I printed off the referral to rheumatology so we can fax it over. Thank you documented in this encounter Plan of Treatment Upcoming Encounters Date Type Department Care Team (Late st Contact Info) Description 10/10/2024 10:00 AM EDT Office Ultrasound [facility], A Department of [facility] [address] [facility] [address] [place] [phone] Stacey Eastman MD [address] [facility] [place] [address] documented as of this encounter Visit Diagnoses [...] documented as of this encounter Care Teams Golf Ball Marker Relationship Specialty Start Date End Date Món[place] [address] [facility] [place] [address] PCP - General Family Medicine 06/23/24 documented as of this encounter
--- OUTSIDE RECORDS SUMMARY | 2024-08-17 08:37 | XMS_ITS | Encounter Summary ---
Author Organization [facility] Address [id number] [address] [place] [address] Care Team Providers Care Yarn Dry Room Worker Name Role Phone Mónica Chao Primary Care Provider [phone] Encounter Details Date Type Department Care Team ([facility] st Contact Info) Description 2023 Orders Only [facility] [address] [place] [phone] Debbie Whitley, CANINE ENFORCEMENT OFFICER-[facility] [address] [place] [phone] Social History Tobacco Use Types Packs/Day [...] Ultrasound [facility], A Department of [facility] [address] [facility] [address] [place] [address] Stacey Eastman MD [address] [facility], [address] [place] [address] documented as of this encounter Visit Diagnoses [...] documented as of this encounter Care Teams Yarn Dry Room Worker Relationship Specialty Start Date End Date Món[place] [address] [facility] [place] [address] PCP - General Family Medicine 06/23/24 documented as of this encounter
--- OUTSIDE RECORDS SUMMARY | 2024-08-17 08:37 | XMS_ITS | Encounter Summary ---
Author Organization [facility] tem Address [id number] [address] [place] [address] Care Team Providers Care Outside Physical Damage Appraiser Name Role Phone Mónica Chao Primary Care Provider [phone] Encounter Details Date Type Department Care Team ([facility] Contact Info) Description 02/01/2023 Telephone [facility]/Pediatric[facility] [address] [facility] [address] [place] [phone] Raul Olmstead CMA Social History Tobacco Use [...] Telephone Encounter - Raul Olmstead CMA - 02/01/2023 12:05 PM EST Bebe with cardiology called into office stating that [facility] is out of network and patient did not want to schedule with them. Patient was called and instructed to call insurance and find a fiberglass product tester covered by insurance. * Telephone Encounter - TERRELL Gonzalez - 02/01/2023 12:05 PM EST Thank you. documented in this encounter Plan of Treatment Upcoming Encounters Date Type Department Care Team (Late st Contact Info) Description 10/10/2024 10:00 AM EDT Office Ultrasound [facility] Adult Endocrinology, A Department of [facility] [address] [facility] [address] [place] [address] Stacey Eastman MD [address] [place] [address] documented as of this encounter Visit Diagnoses Not on filedocumented in this encounter Additional Health Concerns Infection Onset Date Last Indicated Resolved Time Respiratory Rule-Out 01/27/2023 01/27/202302/03/2 023 11:12 PM EST COVID-19 Rule-Out 03/01/2023 [...] documented as of this encounter Care Teams Outside Physical Damage Appraiser Relationship Specialty Start Date End Date Món[place] [address] [place] [address] PCP - General Family Medicine 06/23/24 documented as of this encounter
--- NOTE | 2024-08-17 08:38 | CT_ITS ---
The [address] [address] Patient Name: AL NEWMAN MRN: [id number] date: 1970 Sex: F Assigned Patient Location: ER Current Patient Location: .[facility] Accession/Order Number: [id number] Exam Date: 08/17/2024 10:17 Report Date: 08/17/2024 10:30 At the request of: MONIKA HURST MD Procedure: CT abdomen pelvis w con CT ABDOMEN AND PELVIS WITH CONTRAST COMPARISON: None CLINICAL DATA: Diffuse abdominal pain, nausea, vomiting and diarrhea for the past 2 weeks. Previous abdominal surgery. Spiral images were obtained through the abdomen and pelvis following 100 mL of Omnipaque 300. This CT exam was performed using one or more following dose reduction techniques: Automated exposure control, adjustment of the mA and/or kV according to patient size, or use of iterative reconstruction technique. Limited cuts through the lung bases show mild cardiomegaly. There are bibasilar groundglass parenchymal changes. A tiny hiatal hernia is seen. No calcified gallstones are identified. There is minor focal fat within the liver near the fossa of the ligamentum teres. Calcified splenic granulomas are seen. The pancreas and adrenal glands show no acute findings. There are symmetric renal nephrograms, without hydronephrosis. The abdominal aorta is normal caliber. There are small nonpathologic lymph nodes. No ascites is seen. No dilated small bowel loops are visualized. There is minimal stool at the ascending colon. The transverse and descending colon are decompressed. There is a left upper quadrant colostomy with fat-containing parastomal hernia. There could be minor wall thickening at the exiting bowel loop. There is slight stranding within the stomal fat. There are no priors to determine chronicity. A few scattered colonic diverticula are seen. There is subtle dextroscoliotic curvature. Images through the pelvis show no dilated small bowel. The appendix is not definitely seen. There is a sigmoid anastomosis. There is minimal distal colonic stool. The reproductive organs show no significant abnormalities. The urinary bladder not well distended and the wall appears thickened. No ascites is seen. CT/CT abdomen pelvis w con IMPRESSION: MILD CARDIOMEGALY AND BIBASILAR PARENCHYMAL CHANGES. POSTOPERATIVE CHANGES OF COLECTOMY WITH COLOSTOMY, DESCRIBED. NO BOWEL OR URINARY TRACT OBSTRUCTION. UNDER DISTENDED URINARY BLADDER WITH APPARENT WALL THICKENING. NO OTHER ACUTE FINDINGS. Impression dictated by: Lluvia Estes M.D. 08/17/2024 10:30 AM Dictation Location: [place] [address] Electronically authenticated by: [id number] Y Date: 08/17/2024 10:30
--- NOTE | 2024-08-17 08:41 | ED.GENADUL1 ---
HPI HPI - General Adult General Chief complaint: Nausea/Vomiting/Diarrhea Stated complaint: VOMITING ABDOMINAL PAIN DEHYDRATION Time Seen by Provider: 08/17/24 08:28 Source: patient Mode of arrival: Wheelchair History of Present Illness HPI narrative: 54-year-old female presents to the emergency department for abdominal pain. This she states has been present for several weeks, perhaps a month. She states she was at [facility] several times in the last time was 2 weeks ago. At 1 point she was kept overnight and then released the next day. She complains of pain all over the abdomen and that she has been having diarrhea. She has a colostomy that she has had for about a year. She is not sure why she has it, she reports she had a pocket of pus. The pain is severe and continuous. Related Data Home Medications ?Medication ?Instructions ?Recorded ?Confirmed budesonide-formoterol HFA 160 2 inh inhalation Q12H PRN 07/27/22 08/17/24 mcg-4.5 mcg/actuation aerosol shortness of breath inhaler (Symbicort) gabapentin 600 mg tablet 600 mg PO Q12H 07/27/22 08/17/24 albuterol sulfate 90 mcg/actuation 2 puff inhalation Q4H 08/17/24 08/17/24 aerosol inhaler (Ventolin HFA) apixaban 5 mg tablet (Eliquis) 5 mg PO Q12H 08/17/24 08/17/24 buspirone 5 mg tablet 5 mg PO TID 08/17/24 08/17/24 diclofenac sodium 1 % topical gel 4 g topical QID 08/17/24 08/17/24 famotidine 20 mg tablet 20 mg PO Q12H 08/17/24 08/17/24 ketorolac 0.5 % eye drops 1 drp ophthalmic (eye) Q6H 08/17/24 08/17/24 metoprolol succinate 25 mg 12.5 mg PO Q12H 08/17/24 08/17/24 tablet,extended release 24 hr prednisone 10 mg tablet 10 mg PO DAILY 08/17/24 08/17/24 quetiapine 25 mg tablet 25 mg PO .Q 12 h 08/17/24 08/17/24 sacubitril 24 mg-valsartan 26 mg 1 tab PO BID 08/17/24 08/17/24 tablet (Entresto) trazodone 100 mg tablet 100 mg PO HS PRN sleep 08/17/24 08/17/24 Previous Rx's ?Medication ?Instructions ?Recorded ondansetron 4 mg disintegrating 4 mg PO Q6H PRN nausea and 08/17/24 tablet vomiting #20 tabs Allergies Allergy/AdvReac Type Severity Reaction Status Date / Time Penicillins Allergy Intermediate Unknown Verified 08/17/24 08:23 Opioid HPI Opioid Management Most Recent Opioid Data: Last Pain Scale 8 Today, 09:04 Last Pain Intensity 0 07/29/22, 10:30 Ur Phencyclidine Scrn, (NEGATIVE) Negative Today, 08:40 Review of Systems ROS Narrative A ten point review of systems is negative except as noted above. [facility] Medical History (Updated 08/17/24 @ 10:40 by Narinder Epps MD) Cocaine use ?F14.90 - Cocaine use, unspecified, uncomplicated (ICD-10) Marijuana use ?F12.90 - Cannabis use, unspecified, uncomplicated (ICD-10) Crack cocaine use ?F14.90 - Cocaine use, unspecified, uncomplicated (ICD-10) Oxygen dependent ?Z99.81 - Dependence on supplemental oxygen (ICD-10) Depression ?F32.A - Depression, unspecified (ICD-10) Schizophrenia ?F20.9 - Schizophrenia, unspecified (ICD-10) Rheumatoid arthritis ?M06.9 - Rheumatoid arthritis, unspecified (ICD-10) Myositis ?M60.9 - Myositis, unspecified (ICD-10) Cardiac arrest ?I46.9 - Cardiac arrest, cause unspecified (ICD-10) Pulmonary disease ?J98.4 - Other disorders of lung (ICD-10) Social History Little interest or pleasure in doing things: not at all Feeling down, depressed, or hopeless: not at all Exam Narrative Exam Narrative: Nurses note and vital signs reviewed and patient is not hypoxic. General: The patient appears well and in no apparent distress. Patient is resting comfortably on cart. Skin: Warm, dry, no pallor noted. There is no rash noted. Head: Normocephalic, atraumatic Eye: Normal conjunctiva, no drainage Ears, Nose, Mouth, and Throat: oral mucosa is moist. Nares patent. Cardiovascular: Regular Rate and Rhythm Respiratory: Patient is in no distress, no accessory muscle use, lungs are clear to auscultation, no wheezing, rales or rhonchi Back: non-tender GI: Colostomy in place. No abdominal distention. She has diffuse tenderness. Musculoskeletal: The patient has no evidence of calf tenderness, no pitting edema, symmetrical pulses noted bilaterally Neurological: A&O, normal speech Psychiatric: Cooperative, tearful Constitutional Vital Signs, click to edit/add: Last Vital Signs Temp 98.0 F 08/17/24 08:24 Pulse 138 H 08/17/24 08:24 Resp 20 08/17/24 08:24 BP 145/99 H 08/17/24 08:24 Pulse Ox 99 08/17/24 08:24 O2 Del Method Room Air 08/17/24 08:24 Course Vital Signs Vital signs: Vital Signs Temperature 98.0 F 08/17/24 08:24 Pulse Rate 138 H 08/17/24 08:24 Respiratory Rate 20 08/17/24 08:24 Blood Pressure 145/99 H 08/17/24 08:24 Pulse Oximetry 99 08/17/24 08:24 Oxygen Delivery Method Room Air 08/17/24 08:24 Temperature 98.0 F 08/17/24 08:24 Pulse Rate 138 H 08/17/24 08:24 Respiratory Rate 20 08/17/24 08:24 Blood Pressure 145/99 H 08/17/24 08:24 Pulse Oximetry 99 08/17/24 08:24 Oxygen Delivery Method Room Air 08/17/24 08:24 Medical Decision Making MDM Narrative Medical decision making narrative: CAT scan of the abdomen is negative and blood work shows no significant abnormalities. The patient tested positive for cocaine and this was discussed with her and she was recommended to abstain from cocaine use. She is discharged home with a prescription for Zofran. Treatment diagnosis and follow-up were discussed with the patient. Differential Diagnosis Differential Diagnosis: Bowel obstruction, substance abuse, diverticulitis, colitis Medical Records Medical records reviewed: Yes I reviewed the patient's medical records Medical records narrative: Recent visit to [facility] was reviewed. Lab Data Lab results reviewed: Yes I reviewed the patient's lab results Labs: Lab Results 08/17/24 08/17/24 Range/Units 08:40 09:13 WBC 8.9 (4.0-11.0) 10^3/uL RBC 5.72 H (4.20-5.40) 10^6/uL Hgb 14.0 (12.0-16.0) g/dL Hct 45.0 (36.0-48.0) % MCV 78.7 L (81.0-99.0) fL MCH 24.5 L (26.7-34.0) pg MCHC 31.1 (29.9-35.2) g/dL RDW 18.9 H (11.0-15.0) % Plt Count 305 (150-450) 10^3/uL MPV 10.5 (9.5-13.5) fL Neut % (Auto) 60.2 (43.0-75.0) % Lymph % (Auto) 29.4 (20.5-60.0) % [place] % (Auto) 9.2 (1.7-12.0) % Eos % (Auto) 0.7 L (0.9-7.0) % Baso % (Auto) 0.4 (0.2-2.0) % Neut # (Auto) 5.4 (1.4-6.5) 10^3/uL Lymph # (Auto) 2.6 (1.2-3.8) 10^3/uL [place] # (Auto) 0.8 (0.3-0.8) 10^3/uL Eos # (Auto) 0.1 (0.0-0.7) 10^3/uL Baso # (Auto) 0.0 (0.0-0.1) 10^3/uL Abs Immat Gran (auto) 0.01 (0.00-0.03) 10^3/uL Imm/Tot Granulo (auto) 0.1 (0.0-0.5) % Sodium 143 (136-145) mmol/L Potassium 3.0 L (3.5-5.1) mmol/L Chloride 105 (98-107) mmol/L Carbon Dioxide 25.9 (21.0-32.0) mmol/L Anion Gap 15.1 BUN 15.0 (7.0-18.0) mg/dL Creatinine 0.80 (0.55-1.02) mg/dL Est GFR ( Amer) >60 (>=60 mL/min/1.73m^2) Est GFR (Non-Af Amer) >60 (>=60 mL/min/1.73m^2) BUN/Creatinine Ratio 18.8 Glucose 99 (74-106) mg/dL Lactate 2.5 H* (0.4-2.0) mmol/L Calcium 9.7 (8.5-10.1) mg/dL Total Bilirubin 1.2 H (0.2-1.0) mg/dL Direct Bilirubin 0.2 (0.0-0.2) mg/dL AST 25 (15-37) U/L ALT 36 (14-59) U/L Alkaline Phosphatase 98 (46-116) U/L Total Protein 7.6 (6.4-8.2) g/dL Albumin 3.0 L (3.4-5.0) g/dL Globulin 4.6 g/dL Albumin/Globulin Ratio 0.7 Amylase 92 (25-115) U/L Lipase 14.0 L (16.0-77.0) U/L Urine Color Dk yellow (YELLOW) Urine Clarity Sl cloudy (CLEAR) Urine pH 6.0 (5.0-9.0) Ur Specific [place] >=1.030 A (1.005-1.025) Urine Protein 100 A (NEG/TRACE) mg/dL Urine Glucose (UA) Negative (NEGATIVE) mg/dL Urine Ketones Negative (NEGATIVE) mg/dL Urine Occult Blood Moderate A (NEGATIVE) Urine Nitrite Negative (NEGATIVE) Urine Bilirubin Moderate A (NEGATIVE) Urine Urobilinogen 1.0 (0.2-1.0) EU/dL Ur Leukocyte Esterase Small A (NEGATIVE) Urine RBC 0-2 (0-2) #/HPF Urine WBC 2-5 A (NONE SEEN) #/HPF Ur Squamous Epith Cells Few A (NONE/RARE) #/LPF Urine Crystals None seen (None Seen) #/HPF Urine Bacteria Moderate A (NONE SEEN) #/HPF Urine Casts Seen A (NONE SEEN) #/LPF Hyaline Casts Rare Urine Starch Rare Urine Mucus Moderate A (NONE SEEN) Ur Culture Indicated? [facility] [place] Urine Opiates Screen Negative (NEGATIVE) Ur Buprenorphine Scrn Negative (NEGATIVE) Ur Oxycodone Screen Negative (NEGATIVE) Urine Methadone Screen Negative (NEGATIVE) Ur Barbiturates Screen Negative (NEGATIVE) U Tricyclic Antidepress Negative (NEGATIVE) Ur Phencyclidine Scrn Negative (NEGATIVE) Ur Amphetamines Screen Negative (NEGATIVE) U Methamphetamines Scrn Negative (NEGATIVE) U Benzodiazepines Scrn Negative (NEGATIVE) Urine Cocaine Screen Positive A (NEGATIVE) U Cannabinoids Screen Positive A (NEGATIVE) Imaging Data CT scan - abdomen: Radiologist's impression: ITS Impressions Abdomen/Pelvis CT 08/17/24 08:38 IMPRESSION: MILD CARDIOMEGALY AND BIBASILAR PARENCHYMAL CHANGES. POSTOPERATIVE CHANGES OF COLECTOMY WITH COLOSTOMY, DESCRIBED. NO BOWEL OR URINARY TRACT OBSTRUCTION. UNDER DISTENDED URINARY BLADDER WITH APPARENT WALL THICKENING. NO OTHER ACUTE FINDINGS. Impression dictated by: Lluvia Estes M.D. 08/17/2024 10:30 AM Dictation Location: [place] [id number] Electronically authenticated by: [id number] Y Date: 08/17/2024 10:30 ECG Data Attestation: I personally reviewed and interpreted this ECG as follows: (EKG on my interpretation shows sinus rhythm with artifact and LVH) Discharge Plan Discharge Chief Complaint: Nausea/Vomiting/Diarrhea Clinical Impression: Abdominal pain, Cocaine abuse Patient Disposition: Home, Self-Care Time of Disposition Decision: 10:39 Condition: Good Mode of Transportation: Private Vehicle Prescriptions / Home Meds: New ondansetron 4 mg tablet,disintegrating 4 mg PO Q6H PRN (Reason: nausea and vomiting) Qty: 20 0RF No Action budesonide-formoterol [Symbicort] 160-4.5 mcg/actuation HFA aerosol inhaler 2 inh INHALATION Q12H PRN (Reason: shortness of breath) gabapentin 600 mg tablet 600 mg PO Q12H albuterol sulfate [Ventolin HFA] 90 mcg/actuation HFA aerosol inhaler 2 puff INHALATION Q4H Eliquis 5 mg tablet 5 mg PO Q12H buspirone 5 mg tablet 5 mg PO TID famotidine 20 mg tablet 20 mg PO Q12H ketorolac 0.5 % drops 1 drp OPHTHALMIC (EYE) Q6H metoprolol succinate 25 mg tablet extended release 24 hr 12.5 mg PO Q12H quetiapine 25 mg tablet 25 mg PO .Q 12 h trazodone 100 mg tablet 100 mg PO HS PRN (Reason: sleep) diclofenac sodium 1 % gel 4 g topical QID Rx Instructions: apply to single knee, ankle, foot; for foot includes sole/toes/top of foot Entresto 24-26 mg tablet 1 tab PO BID prednisone 10 mg tablet 10 mg PO DAILY Print Language: [place] Instructions: Cocaine Use Disorder (ED), Abdominal Pain (ED) Referrals: Physician,Non-Staff, MD [Primary Care Provider] - 1 week
[2024-08-17 09:07] LABS: Bilirubin Urine MODERATE (NEGATIVE); Blood Urine MODERATE (NEGATIVE); Clarity Urine SL CLOUDY (CLEAR); Glucose Urine UA NEGATIVE (NEGATIVE); Ketones Urine NEGATIVE (NEGATIVE); Leukocyte Esterase Urine SMALL (NEGATIVE); Nitrite Urine NEGATIVE (NEGATIVE); Protein Urine 100 mg/dL (NEG/TRACE); Specific Gravity Urine >=1.030 (1.005-1.025)
[2024-08-17 09:12] LABS: Color Urine DK YELLOW (YELLOW)
[2024-08-17 09:15] LABS: Bacteria Urine MODERATE #/HPF (NONE SEEN); RBC Urine 0-2 #/HPF (0-2)
[2024-08-17 09:16] LABS: Cast Seen? SEEN #/LPF (NONE SEEN); Crystals Seen? None Seen #/HPF (None Seen); Hyaline Casts Urine RARE; Mucus Urine MODERATE (NONE SEEN); Squamous Epithelial Cell Urine FEW #/LPF (NONE/RARE); Starch Urine RARE; Urine Culture Indicated YES-FRMC
[2024-08-17 09:18] LABS: Amphetamine Screen Urine NEGATIVE (NEGATIVE); Barbiturates Screen Urine NEGATIVE (NEGATIVE); Benzodiazepines Screen Urine NEGATIVE (NEGATIVE); Buprenorphine Screen Urine NEGATIVE (NEGATIVE); Cannabinoid Screen Urine POSITIVE (NEGATIVE); Cocaine Screen Urine POSITIVE (NEGATIVE); Methadone Screen Urine NEGATIVE (NEGATIVE); Methamphetamines Screen Urine NEGATIVE (NEGATIVE); Opiate Screen Urine NEGATIVE (NEGATIVE); Oxycodone Screen Urine NEGATIVE (NEGATIVE); Phencyclidine Screen Urine NEGATIVE (NEGATIVE); Tricyclic Antidepressant Urine NEGATIVE (NEGATIVE)
[2024-08-17] MEDS: 0.9 % SODIUM CHLORIDE 1,000 ML 125 ML IV (09:18)
[2024-08-17] MEDS: ONDANSETRON PF 4 MG/2 ML VIAL IV (09:18)
[2024-08-17 09:20] LABS: Basophils Percent Auto 0.4 % (0.2-2.0); Eosinophils Absolute Auto 0.1 10^3/uL (0.0-0.7); Eosinophils Percent Auto 0.7 % (0.9-7.0); Immature Granulocytes Abs Auto 0.01 10^3/uL (0.00-0.03); Immature Granulocytes Pct Auto 0.1 % (0.0-0.5); Lymphocytes Absolute Auto 2.6 10^3/uL (1.2-3.8); Lymphocytes Percent Auto 29.4 % (20.5-60.0); Mean Corpuscular HGB Conc 31.1 g/dL (29.9-35.2); Mean Corpuscular Hemoglobin 24.5 pg (26.7-34.0); Mean Corpuscular Volume 78.7 fL (81.0-99.0); Mean Platelet Volume 10.5 fL (9.5-13.5); Monocytes Absolute Auto 0.8 10^3/uL (0.3-0.8); Monocytes Percent Auto 9.2 % (1.7-12.0); Neutrophils Absolute Auto 5.4 10^3/uL (1.4-6.5); Neutrophils Percent Auto 60.2 % (43.0-75.0); Platelet Count 305 10^3/uL (150-450); Red Blood Count 5.72 10^6/uL (4.20-5.40); Red Cell Distribution Width 18.9 % (11.0-15.0); White Blood Count 8.9 10^3/uL (4.0-11.0)
[2024-08-17 09:36] LABS: Anion Gap 15.1; BUN Creatinine Ratio 18.8; Calcium 9.7 mg/dL (8.5-10.1); Carbon Dioxide 25.9 mmol/L (21.0-32.0); Chloride 105 mmol/L (98-107); Estimated GFR (African America >60 (>=60 mL/min/1.73m^2); Estimated GFR (Non-African Ame >60 (>=60 mL/min/1.73m^2); Glucose 99 mg/dL (74-106); Sodium 143 mmol/L (136-145)
[2024-08-17 09:49] LABS: Alanine Aminotransferase 36 U/L (14-59); Albumin Globulin Ratio 0.7; Alkaline Phosphatase 98 U/L (46-116); Amylase 92 U/L (25-115); Aspartate Amino Transferase 25 U/L (15-37); Bilirubin Direct 0.2 mg/dL (0.0-0.2); Bilirubin Total 1.2 mg/dL (0.2-1.0); Globulin 4.6 g/dL; Total Protein 7.6 g/dL (6.4-8.2)
[2024-08-17 10:00] LABS: Lactate/Lactic Acid 2.5 mmol/L (0.4-2.0)
== END 2024-08-17 10:58 | disposition home or self-care (01) ==
PROVIDERS: Emergency Provider Emergency Medicine; PCP Family Medicine
DX: R10.9 Unspecified abdominal pain (principal); F14.10 Cocaine abuse, uncomplicated; Z93.3 Colostomy status
CPT/HCPCS: 36415; 74177; 80048; 80076; 80307; 81001; 82150; 83605; 83690; 85025; 87086; 93005; 96361; 96374; 99285; J2405; Q9967